=== PATIENT | male | born 1945 | race Caucasian/White ===

== ENCOUNTER 2016-07-02 11:36 | Emergency (ER) | payer MEDICARE ==
[~2016-07-02] VITALS: Ht 167.6 cm; Wt 78.0 kg
[~2016-07-02 11:36] MED LIST: APIX5TAB PO; ATOR20TA42 PO; CARD4TAB2 PO; CART240C4 PO; CEPH500C3 PO; CHOL50006 PO; CLON.1 PO; COEN400C PO; HYDR12.56 PO; LOSA100T PO; METO50TA PO; OCUVTAB4 PO; OMEP20CA5 PO; POTA1TAB4 PO; SYNT137T PO; TAB-TAB PO
[2016-07-02 11:54] VITALS: BP 102/55; PULSE 82; RESP 18; TEMP 99.8; O2SAT 94
[2016-07-02] MEDS ORDERED: CLON.1 PO (12:05)
[2016-07-02] MEDS ORDERED: LIPI20TA PO (12:05)
[2016-07-02] MEDS ORDERED: LEVO25TA39 PO (12:05)
[2016-07-02] MEDS ORDERED: LEVO50TA53 PO ×2 (12:05)
[2016-07-02] MEDS ORDERED: HYDR12.56 PO (12:05)
[2016-07-02] MEDS ORDERED: POTA1TAB4 PO (12:05)
[2016-07-02] MEDS ORDERED: CARD4TAB2 PO (12:05)
[2016-07-02] MEDS ORDERED: PRIL20CA9 PO (12:05)
[2016-07-02] MEDS ORDERED: LOSA25TA PO (12:08)
[2016-07-02] MEDS ORDERED: CHOL1CHW5 CHEW (12:09)
[2016-07-02] MEDS ORDERED: METO50TA PO (12:09)
[2016-07-02] MEDS ORDERED: CART240C PO (12:09)
[2016-07-02] MEDS ORDERED: APIX5TAB PO (12:09)
[2016-07-02] MEDS ORDERED: SODIUM CHLORIDE 0.9% FLUSH 5 ML FLUSH IVF PRN (12:15)
--- NOTE | 2016-07-02 12:45 | PD ---
HPI Chief Complaint: Cold / Flu Symptoms Time Seen by Provider: 12:08 Travel History International Travel<30 days: No Contact w/Intl Traveler<30days: No Traveled to known affect area: No History of Present Illness HPI Patient is a 71-year-old male who presents to emergency room with complaints of cough congestion, fevers and chills for the past 2 days. Patient reports that his was sick with similar symptoms - reports that he is not feeling any better but continues to feel sick. Reports that his symptoms initially began with sore throat, reports that he now has increased cough/congestion. Reports that he also had diarrhea a few days ago - reports no diarrhea today. Denies abdominal pain. Denies n/v. Denies chest pain/sob. No recent travels/trips. 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.) Endocrine: Yes Gastrointestinal Disorders: Yes GERD: Yes Glaucoma: No Genitourinary: No Hepatitis: No Hiatal Hernia: Yes Hypertension: Yes Immune Disorder: No Implanted Vascular Access Dvce: Yes Medical other: No Musculoskeletal: Yes Neurologic: No Psychiatric: No Reproductive: No Respiratory: Yes (ASTHMA) Integumentary: No Immunizations Current: No Thyroid Disease: Yes (HYPOTHYROID) Influenza Vaccination: No Past Surgical History Abdominal Surgery: No AICD: No Body Medical Devices: LOWER BACK Cardiac Surgery: Yes (ABLASION 016) Ear Surgery: No Endocrine Surgery: No Eye Surgery: No Genitourinary Surgery: No Joint Replacement: No Neurologic Surgery: No Oral Surgery: Yes (TONSILLECTOMY) Pacemaker: No Thoracic Surgery: No Tonsillectomy: Yes Other Surgery: Yes (RIGHT KNEE; TORN ACL) Social History Alcohol Use: Yes (DAILY) Tobacco Use: No Substance Use: No Allergies-Medications (Allergen,Severity, Reaction): Coded Allergies: Sulfa (Verified Adverse Reaction, Severe, subconjuntival bleed, 07/02/16) Reported Meds & Prescriptions Reported Meds & Active Scripts Active Reported Cartia Xt (Diltiazem ER 24 HR) 240 Mg Caper 240 Mg PO DAILY Vitamin D3 (Cholecalciferol) 2,000 Unit Chew 2,000 Units CHEW DAILY Metoprolol Tartrate 50 Mg Tab 50 Mg PO BID Eliquis (Apixaban) 5 Mg Tab 5 Mg PO BID Losartan (Losartan Potassium) 25 Mg Tab 10 Mg PO DAILY Levoxyl (Levothyroxine Sodium) 50 Mcg Tab 50 Mcg PO RODRÍGUEZ,TH Levoxyl (Levothyroxine Sodium) 50 Mcg Tab 50 Mcg PO DAILY Levoxyl (Levothyroxine Sodium) 25 Mcg Tab 37.5 Mcg PO M,T,W,F,SA Prilosec (Omeprazole) 20 Mg Cap 20 Mg PO DAILY Lipitor (Atorvastatin Calcium) 20 Mg Tab 20 Mg PO HS K-Tab (Potassium Chloride) 20 Meq Tab 40 Meq PO DAILY Hydrochlorothiazide 12.5 Mg Tab 12.5 Mg PO DAILY Cardura (Doxazosin Mesylate) 4 Mg Tab 4 Mg PO DAILY Catapres (Clonidine) 0.1 Mg Tab 0.1 Mg PO TID Review of Systems General / Constitutional: Positive: Fever, Chills Eyes: No: Visual changes HENT: No: Headaches Cardiovascular: No: Chest Pain or Discomfort Respiratory: Positive: Cough, No: Shortness of Breath Gastrointestinal: Positive: Diarrhea, No: Abdominal Pain Genitourinary: No: Dysuria Musculoskeletal: No: Pain Skin: No Rash Neurologic: No: Weakness Psychiatric: No: Depression Endocrine: No: Polydipsia Hematologic/Lymphatic: No: Easy Bruising Physical Exam Narrative GENERAL: nad, nontoxic SKIN: Warm and dry. HEAD: Atraumatic. Normocephalic. EYES:. No injection or drainage. ENT: No nasal bleeding or discharge. Mucous membranes pink and moist. NECK: Trachea midline. No JVD. CARDIOVASCULAR: Regular rate and rhythm. No murmur appreciated. RESPIRATORY: No accessory muscle use. Clear to auscultation. Breath sounds equal bilaterally. GASTROINTESTINAL: Abdomen soft, non-tender, nondistended. Hepatic and splenic margins not palpable. MUSCULOSKELETAL: No obvious deformities. No clubbing. No cyanosis. No edema. NEUROLOGICAL: Awake and alert. No obvious cranial nerve deficits. Motor grossly within normal limits. Normal speech. PSYCHIATRIC: Appropriate mood and affect; insight and judgment normal. Data Data Last Documented VS Vital Signs Date Time Temp Pulse Resp B/P Pulse Ox O2 Delivery O2 Flow Rate FiO2 07/02/16 13:10 78 18 106/62 95 Nasal Cannula 2 07/02/16 11:54 99.8 Orders Complete Blood Count With Diff (07/02/16 12:12) Comprehensive Metabolic Panel (07/02/16 12:12) Group A Rapid Strep Screen (07/02/16 12:12) Influenzae A/B Antigen (07/02/16 12:12) Chest, Pa & Lat (07/02/16 12:12) Iv Access Insert/Monitor (07/02/16 12:12) Oximetry (07/02/16 12:12) Sodium Chloride 0.9% Flush (Ns Flush) (07/02/16 12:15) Strep Culture (Group A) (07/02/16 12:15) Sodium Chlor 0.9% 1000 Ml Inj (Ns 1000 M (07/02/16 13:00) Labs Laboratory Tests Test 07/02/16 12:40 White Blood Count 11.0 TH/MM3 Red Blood Count 5.05 MIL/MM3 Hemoglobin 15.6 GM/DL Hematocrit 46.4 % Mean Corpuscular Volume 91.7 FL Mean Corpuscular Hemoglobin 30.8 PG Mean Corpuscular Hemoglobin 33.5 % Concent Red Cell Distribution Width 12.6 % Platelet Count 181 TH/MM3 Mean Platelet Volume 8.3 FL Neutrophils (%) (Auto) 79.9 % Lymphocytes (%) (Auto) 6.5 % Monocytes (%) (Auto) 9.7 % Eosinophils (%) (Auto) 0.0 % Basophils (%) (Auto) 3.9 % Neutrophils # (Auto) 8.8 TH/MM3 Lymphocytes # (Auto) 0.7 TH/MM3 Monocytes # (Auto) 1.1 TH/MM3 Eosinophils # (Auto) 0.0 TH/MM3 Basophils # (Auto) 0.4 TH/MM3 CBC Comment DIFF FINAL Differential Comment Sodium Level 135 MEQ/L Potassium Level 3.7 MEQ/L Chloride Level 98 MEQ/L Carbon Dioxide Level 28.6 MEQ/L Anion Gap 8 MEQ/L Blood Urea Nitrogen 11 MG/DL Creatinine 1.10 MG/DL Estimat Glomerular Filtration 66 ML/MIN Rate Random Glucose 121 MG/DL Calcium Level 8.3 MG/DL Total Bilirubin 0.6 MG/DL Aspartate Amino Transf 23 U/L (AST/SGOT) Alanine Aminotransferase 32 U/L (ALT/SGPT) Alkaline Phosphatase 91 U/L Total Protein 7.3 GM/DL Albumin 3.6 GM/DL MDM Medical Decision Making Medical Screen Exam Complete: Yes Emergency Medical Condition: Yes Interpretation(s) Vital Signs Date Time Temp Pulse Resp B/P Pulse Ox O2 Delivery O2 Flow Rate FiO2 07/02/16 11:54 99.8 82 18 102/55 94 Differential Diagnosis Pneumonia, influenza, viral syndrome, gastroenteritis, strep pharyngitis Narrative Course Patient is a 71-year-old male who presents to emergency room with complaints of not feeling well. Patient reports that his symptoms initially began with sore throat, reports that he progressed to having diarrhea with fevers and chills and myalgias. Reports the cough has been nonproductive in nature. Patient's was sick with similar symptoms previously onset of symptoms. X-ray of the chest ordered for evaluation of possible pneumonia. . Patient for possible flu. CBC and BMP ordered to evaluate for possible electrolyte abnormalities CBC: WBC 11.0 Hemoglobin 15.6 Hematocrit 46.4 Platelets 181 BMP Sodium 135 Chloride 98 BUN 11 Creatinine 1.10 Glucose 121 Potassium 3.7 Carbon dioxide 28.6 Influenza: Positive for influenza A X-ray of chest: Under aerated lungs otherwise negative Patient overall nontoxic in the emergency room, vital signs stable. I reviewed all labs and all studies with patient detail. Given that symptoms began 2 days ago, will start him on Tamiflu. Signs and symptoms of when to return to the emergency room was reviewed with patient in detail. Patient will follow-up with primary care doctor and return to ER as needed Diagnosis Primary Impression: Influenza A Patient Instructions: General Instructions Additional Instructions: Please make sure you drink plenty of fluids Return to ER as needed Please call your primary care doctor and follow-up in 2-3 days Return to ER if symptoms progress or worsen Med/Other Pt SpecificInfo: Prescription(s) given Scripts Oseltamivir (Tamiflu)75 Mg Cap75 Mg PO BID 5 Days Ref 0 Prov:Keli Acosta DO 07/02/16 Disposition: 01 DISCHARGE HOME Condition: Stable Keli Acosta DO Jul 02, 2016 12:45
[2016-07-02 12:47] VITALS: RESP 18; O2SAT 92
[2016-07-02 12:52] LABS: AUTOMATED NEUTROPHIL # 8.8 TH/MM3 (1.8-7.7); BASOPHIL # 0.4 TH/MM3 (0-0.2); BASOPHIL % 3.9 % (0.0-2.0); HEMATOCRIT 46.4 % (39.0-51.0); LYMPH % 6.5 % (9.0-44.0); LYMPHOCYTE # 0.7 TH/MM3 (1.0-4.8); MEAN CELL VOLUME 91.7 FL (80.0-100.0); MEAN CORPUSCULAR HEMOGLOBIN 30.8 PG (27.0-34.0); MEAN CORPUSCULAR HGB CONC 33.5 % (32.0-36.0); MONO % 9.7 % (0.0-8.0); NEUT % 79.9 % (16.0-70.0); PLATELET COUNT 181 TH/MM3 (150-450); RED BLOOD COUNT 5.05 MIL/MM3 (4.50-5.90); RED CELL DISTRIBUTION WIDTH 12.6 % (11.6-17.2)
[2016-07-02 12:53] LABS: HEMO FLAGS DIFF FINAL
[2016-07-02 13:00] LABS: CHLORIDE 98 MEQ/L (98-107); POTASSIUM 3.7 MEQ/L (3.5-5.1); SODIUM (NA) 135 MEQ/L (136-145)
[2016-07-02] MEDS ORDERED: SODIUM CHLOR 0.9% 1000 ML INJ 1,000 ML IV ONE (13:00)
[2016-07-02 13:04] LABS: ANION GAP 8 MEQ/L (5-15); BICARBONATE 28.6 MEQ/L (21.0-32.0); BLOOD UREA NITROGEN 11 MG/DL (7-18)
[2016-07-02 13:07] LABS: ALT (GPT) 32 U/L (12-78); AST (GOT) 23 U/L (15-37); GLOMERULAR FILTRATION RATE 66 ML/MIN (>89)
[2016-07-02 13:08] LABS: TOTAL BILIRUBIN ADULT 0.6 MG/DL (0.2-1.0)
[2016-07-02 13:10] VITALS: BP 106/62; PULSE 78; RESP 18; O2SAT 95
[2016-07-02 13:10] LABS: ALKALINE PHOSPHATASE 91 U/L (45-117)
--- NOTE | 2016-07-02 13:46 | RADHPO ---
EXAM DATE/TIME: 07/02/2016 12:24 [facility] COMPARISON: CHEST PA & LAT, June 22, 2010, 14:23. INDICATIONS : Flu like symptoms. MEDICAL HISTORY : Hypercholesterolemia. Diabetes mellitus type II. Hypothyroidism. Hypertension. Hiatial hernia. GE RD. SURGICAL HISTORY : Tonsillectomy. Cardiac abasion. Lumbar. Knee. ENCOUNTER: Initial ACUITY: 3 days PAIN SCORE: 3/10 LOCATION: chest FINDINGS: The lungs are under-aerated but clear. The heart and pulmonary vascularity are normal. The portions of the bony skeleton visualized reveal only degenerative changes. CONCLUSION: Under-aerated. Otherwise, negative. Leandro Prasad MD FACR on July 02, 2016 at 12:52 Board Certified Radiologist. This report was verified electronically.
[2016-07-02] MEDS ORDERED: OSEL75 PO (14:12)
[2016-07-02 14:20] VITALS: BP 124/63; PULSE 75; RESP 18; O2SAT 95
== END 2016-07-02 14:39 | disposition home or self-care (01) ==
LOC: PHED 11:36
DX: J09.X2 Influenza due to identified novel influenza A virus with other respiratory manifestations (principal); J45.909 Unspecified asthma, uncomplicated; E78.00 Pure hypercholesterolemia, unspecified; E11.9 Type 2 diabetes mellitus without complications; K21.9 Gastro-esophageal reflux disease without esophagitis; I10 Essential (primary) hypertension; E07.9 Disorder of thyroid, unspecified
CPT/HCPCS: 71020; 80053; 85025; 87081; 87804; 87880; 96360; 99283; J7030

== ENCOUNTER → 2016-11-29 | Outpatient (CLI) | payer MEDICARE ==
[~2016-11-29] MED LIST changes: -ATOR20TA42 PO; +CART240C PO; -CART240C4 PO; -CEPH500C3 PO; +CHOL1CHW5 CHEW; -CHOL50006 PO; -COEN400C PO; +LEVO25TA39 PO; +LEVO50TA53 PO; +LIPI20TA PO; -LOSA100T PO; +LOSA25TA PO; -OCUVTAB4 PO; -OMEP20CA5 PO; +OSEL75 PO; +PRIL20CA9 PO; -SYNT137T PO; -TAB-TAB PO
[2016-11-29 10:36] LABS: AUTOMATED NEUTROPHIL # 2.7 TH/MM3 (1.8-7.7); BASOPHIL % 0.8 % (0.0-2.0); EOSINOPHIL # 0.2 TH/MM3 (0-0.4); EOSINOPHIL % 4.9 % (0.0-4.0); HEMATOCRIT 45.9 % (39.0-51.0); HEMO FLAGS DIFF FINAL; LYMPHOCYTE # 1.2 TH/MM3 (1.0-4.8); MEAN CELL VOLUME 91.6 FL (80.0-100.0); MEAN CORPUSCULAR HEMOGLOBIN 31.4 PG (27.0-34.0); MEAN CORPUSCULAR HGB CONC 34.3 % (32.0-36.0); NEUT % 54.3 % (16.0-70.0); PLATELET COUNT 186 TH/MM3 (150-450); RED BLOOD COUNT 5.02 MIL/MM3 (4.50-5.90); RED CELL DISTRIBUTION WIDTH 13.5 % (11.6-17.2); WHITE BLOOD COUNT 4.9 TH/MM3 (4.0-11.0)
[2016-11-29 10:59] LABS: ALT (GPT) 39 U/L (12-78)
[2016-11-29 11:09] LABS: ALKALINE PHOSPHATASE 82 U/L (45-117); HDL CHOLESTEROL 51.5 MG/DL (40.0-60.0); LDL CHOLESTEROL 78 MG/DL (0-99); TOTAL BILIRUBIN ADULT 0.6 MG/DL (0.2-1.0)
[2016-11-29 11:11] LABS: ANION GAP 6 MEQ/L (5-15); AST (GOT) 34 U/L (15-37); BICARBONATE 27.5 MEQ/L (21.0-32.0); BLOOD UREA NITROGEN 14 MG/DL (7-18); CHLORIDE 104 MEQ/L (98-107); GLOMERULAR FILTRATION RATE 89 ML/MIN (>89); GLUCOSE,FASTING 118 MG/DL (74-99); SODIUM (NA) 137 MEQ/L (136-145)
[2016-11-29 17:30] LABS: HEMOGLOBIN A1b 0.8 %; HEMOGLOBIN Ao 84.7 %; HEMOGLOBIN LA1C 2.2 %; HEMOGLOBIN P3 3.8 %
== END ==
LOC: CLAB 10:09
PROVIDERS: ATTEND Internal Medicine Nephrology
DX: I10 Essential (primary) hypertension (principal); E11.9 Type 2 diabetes mellitus without complications; I48.91 Unspecified atrial fibrillation; E78.5 Hyperlipidemia, unspecified
CPT/HCPCS: 36415; 80053; 80061; 82043; 83036; 84443; 85025

== ENCOUNTER 2017-03-26 09:38 | Emergency (ER) | payer MEDICARE ==
[~2017-03-26] VITALS: Ht 167.6 cm; Wt 79.7 kg
[2017-03-26 09:59] VITALS: BP 106/64; PULSE 70; RESP 16; TEMP 98.9; O2SAT 95
[2017-03-26] MEDS ORDERED: RESP: ALBUTEROL 2.5 MG/IPRATROPIUM 0.5 MG NEB (SCH) NEB ONE (10:15)
--- NOTE | 2017-03-26 10:17 | PD ---
HPI Chief Complaint: Cold / Flu Symptoms Time Seen by Provider: 10:03 Travel History International Travel<30 days: No Contact w/Intl Traveler<30days: No Traveled to known affect area: No History of Present Illness HPI The patient is a 72-year-old male who presents to the emergency department for cough and cold symptoms of 2-3 days duration. The patient is approximately 3 days of cough and cold symptoms with congestion, productive cough producing white sputum, mild nausea, few episodes of diarrhea, and some mild generalized body aches. The patient had similar symptoms in June 2016 was diagnosed with influenza. The patient did receive his influenza vaccination this year and states his symptoms have been ongoing for greater than 48 hours. He denies any history of bronchitis or pneumonia, however, does hear "wheezing ", when he breathes. He denies any outright shortness of breath. He does note some generalized fatigue and chills, denies any measurable fever at home. Patient's symptoms are moderate without any alleviating or exacerbating factors. The patient denies any history of congestive heart failure. 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.) Endocrine: Yes Gastrointestinal Disorders: Yes GERD: Yes Glaucoma: No Genitourinary: No Hepatitis: No Hiatal Hernia: Yes Hypertension: Yes Immune Disorder: No Implanted Vascular Access Dvce: Yes Musculoskeletal: Yes Neurologic: No Psychiatric: No Reproductive: No Respiratory: Yes (ASTHMA) Integumentary: No Immunizations Current: No Thyroid Disease: Yes (HYPOTHYROID) Past Surgical History Abdominal Surgery: No AICD: No Body Medical Devices: LOWER BACK Cardiac Surgery: Yes (ABLASION 0/16) Ear Surgery: No Endocrine Surgery: No Eye Surgery: No Genitourinary Surgery: No Joint Replacement: No Neurologic Surgery: No Oral Surgery: Yes (TONSILLECTOMY) Pacemaker: No Thoracic Surgery: No Tonsillectomy: Yes Other Surgery: Yes (RIGHT KNEE; TORN ACL) Social History Alcohol Use: Yes (DAILY) Tobacco Use: No Substance Use: No Allergies-Medications (Allergen,Severity, Reaction): Coded Allergies: Sulfa (Sulfonamide Antibiotics) (Unverified Adverse Reaction, Severe, subconjuntival bleed, 03/26/17) Reported Meds & Prescriptions Reported Meds & Active Scripts Active Reported Omeprazole 20 Mg Tab 20 Mg PO DAILY Cartia Xt (Diltiazem ER 24 HR) 120 Mg Caper 240 Mg PO DAILY Vitamin D3 (Cholecalciferol) 2,000 Unit Cap 2,000 Units PO DAILY Metoprolol Tartrate 50 Mg Tab 50 Mg PO BID Eliquis (Apixaban) 5 Mg Tab 5 Mg PO BID Losartan (Losartan Potassium) 25 Mg Tab 10 Mg PO DAILY Levoxyl (Levothyroxine Sodium) 50 Mcg Tab 50 Mcg PO RODRÍGUEZ,TH Levoxyl (Levothyroxine Sodium) 25 Mcg Tab 37.5 Mcg PO M,T,W,F,SA Lipitor (Atorvastatin Calcium) 20 Mg Tab 20 Mg PO HS K-Tab (Potassium Chloride) 20 Meq Tab 40 Meq PO DAILY Hydrochlorothiazide 12.5 Mg Tab 12.5 Mg PO DAILY Cardura (Doxazosin Mesylate) 4 Mg Tab 4 Mg PO DAILY Catapres (Clonidine) 0.1 Mg Tab 0.1 Mg PO TID Review of Systems Except as stated in HPI: all other systems reviewed are Neg General / Constitutional: Positive: Chills, No: Fever HENT: Positive: Congestion, No: Sore Throat Cardiovascular: No: Chest Pain or Discomfort Respiratory: Positive: Cough, Wheezing, No: Shortness of Breath Gastrointestinal: Positive: Nausea, Diarrhea, No: Vomiting, Abdominal Pain Genitourinary: No: Dysuria Musculoskeletal: Positive: Myalgias, Weakness Physical Exam Narrative GENERAL: Awake, alert, pleasant 72-year-old male who appears his stated age and is in no acute respiratory distress. SKIN: Focused skin assessment warm/dry. HEAD: Atraumatic. Normocephalic. EYES: Pupils equal and round. No scleral icterus. No injection or drainage. ENT: No nasal bleeding or discharge. Mucous membranes pink and moist. Cobblestoning of posterior pharynx but no exudate. NECK: Trachea midline. No JVD. CARDIOVASCULAR: Regular rate and rhythm. No murmur appreciated. RESPIRATORY: No accessory muscle use. Few scattered wheezes and rhonchi in the bases. GASTROINTESTINAL: Abdomen soft, non-tender, nondistended. MUSCULOSKELETAL: No obvious deformities. No clubbing. No cyanosis. No edema. NEUROLOGICAL: Awake and alert. No obvious cranial nerve deficits. Motor grossly within normal limits. Normal speech. PSYCHIATRIC: Appropriate mood and affect; insight and judgment normal. Data Data Last Documented VS Vital Signs Date Time Temp Pulse Resp B/P (MAP) Pulse Ox O2 Delivery O2 Flow Rate FiO2 03/26/17 10:17 Room Air 03/26/17 09:59 98.9 70 16 106/64 (78) 95 Orders Orders Chest, Single Ap (03/26/17 ) Albuterol-Ipratropium Neb (Duoneb Neb) (03/26/17 10:15) Prednisone (Deltasone) (03/26/17 11:30) Ed Discharge Order (03/26/17 11:24) [facility] Medical Decision Making Medical Screen Exam Complete: Yes Emergency Medical Condition: Yes Medical Record Reviewed: Yes Interpretation(s) Chest x-ray reveals no acute disease. Differential Diagnosis Differential diagnosis includes bronchitis, pneumonia, congestive heart failure , pleural effusion, pulmonary edema, volume overload, viral syndrome, influenza. Narrative Course A chest x-ray was obtained and the patient was administered one DuoNeb. The patient's symptoms been ongoing for 48-72 hours, the patient is outside the window for Tamiflu treatment, therefore, influenza screen was not sent to lab. Chest x-rays unremarkable. The patient was reevaluated at 11:21 AM. The patient's symptoms have improved. The patient will be treated for bronchitis with prednisone, Zithromax, and an albuterol inhaler. He will be provided a copy of his x-ray results and is advised to follow-up with his primary physician. Diagnosis Primary Impression: Bronchitis Patient Instructions: General Instructions Additional Instructions: Please provide the patient a copy of his x-ray results at discharge. Follow-up with your primary physician. Medications as directed. Return if symptoms worsen or progress. Med/Other Pt SpecificInfo: Prescription(s) given Scripts Albuterol 18 GM Inh (Ventolin Hfa 18 GM Inh) 90 Mcg/Act Aer 2 PUFF INH Q4H Y for SHORTNESS OF BREATH, #1 INHALER 0 Refills Prov: Teo Montano MD 03/26/17 Azithromycin (Zithromax Z-Rommel) 250 Mg Dspk 250 MG PO DIRECTED for Infection, #1 DSPK 0 Refills 500 MG (2 tabs) day 1, then 1 tab days 2-5. Prov: Teo Montano MD 03/26/17 Prednisone (Deltasone) 20 Mg Tab 40 MG PO DAILY for 4 Days, #8 TAB 0 Refills Prov: Teo Montano MD 03/26/17 Disposition: 01 DISCHARGE HOME Condition: Stable Teo Montano MD Mar 26, 2017 10:17
[2017-03-26] MEDS ORDERED: VITA2000 PO (10:22)
[2017-03-26] MEDS ORDERED: OMEP20TA PO (10:22)
[2017-03-26] MEDS ORDERED: CART120C PO (10:22)
--- NOTE | 2017-03-26 11:21 | RADRPT ---
EXAM DATE/TIME: 03/26/2017 10:46 [facility] COMPARISON: No previous studies available for comparison. INDICATIONS : Cough, congestion, short of breath MEDICAL HISTORY : None. SURGICAL HISTORY : None. ENCOUNTER: Initial ACUITY: 3 days PAIN SCORE: 0/10 LOCATION: Bilateral chest FINDINGS: A single view of the chest demonstrates the lungs to be symmetrically aerated without evidence of mas s, infiltrate or effusion. The cardiomediastinal contours are unremarkable. Osseous structures are intact. CONCLUSION: No acute disease. Luisito Eastman MD on March 26, 2017 at 11:19 Board Certified Radiologist. This report was verified electronically.
[2017-03-26] MEDS ORDERED: ZITHTAB PO (11:25)
[2017-03-26] MEDS ORDERED: PRED-503 PO (11:25)
[2017-03-26] MEDS ORDERED: VENTAER INH ×2 (11:25→11:35)
[2017-03-26] MEDS ORDERED: predniSONE 20 MG TAB PO ONE (11:30)
== END 2017-03-26 11:36 | disposition home or self-care (01) ==
LOC: PHEFT 09:38
DX: J40 Bronchitis, not specified as acute or chronic (principal); J45.909 Unspecified asthma, uncomplicated; I10 Essential (primary) hypertension; I48.91 Unspecified atrial fibrillation; E78.00 Pure hypercholesterolemia, unspecified; E11.9 Type 2 diabetes mellitus without complications; K21.9 Gastro-esophageal reflux disease without esophagitis; E03.9 Hypothyroidism, unspecified
CPT/HCPCS: 71010; 94664; 99284; J7512

== ENCOUNTER → 2017-06-08 | Outpatient (CLI) | payer MEDICARE ==
[~2017-06-08] MED LIST changes: +CART120C PO; -CART240C PO; -CHOL1CHW5 CHEW; +OMEP20TA93 PO; -OSEL75 PO; +PRED-503 PO; -PRIL20CA9 PO; +VENTAER INH; +VITA2000 PO; +ZITHTAB PO
[2017-06-08 10:54] LABS: AUTOMATED NEUTROPHIL # 2.4 TH/MM3 (1.8-7.7); BASOPHIL % 0.7 % (0.0-2.0); EOSINOPHIL # 0.2 TH/MM3 (0-0.4); EOSINOPHIL % 4.5 % (0.0-4.0); HEMATOCRIT 47.1 % (39.0-51.0); HEMOGLOBIN 16.3 GM/DL (13.0-17.0); LYMPH % 26.7 % (9.0-44.0); LYMPHOCYTE # 1.2 TH/MM3 (1.0-4.8); MEAN CELL VOLUME 93.6 FL (80.0-100.0); MEAN CORPUSCULAR HEMOGLOBIN 32.5 PG (27.0-34.0); MEAN CORPUSCULAR HGB CONC 34.7 % (32.0-36.0); MEAN PLATELET VOLUME 8.4 FL (7.0-11.0); MONO % 15.9 % (0.0-8.0); MONOCYTE # 0.7 TH/MM3 (0-0.9); NEUT % 52.2 % (16.0-70.0); PLATELET COUNT 231 TH/MM3 (150-450); RED BLOOD COUNT 5.03 MIL/MM3 (4.50-5.90); RED CELL DISTRIBUTION WIDTH 13.5 % (11.6-17.2); WHITE BLOOD COUNT 4.6 TH/MM3 (4.0-11.0)
[2017-06-08 11:27] LABS: ALBUMIN 3.9 GM/DL (3.4-5.0); AST (GOT) 32 U/L (15-37); BICARBONATE 28.2 MEQ/L (21.0-32.0); BLOOD UREA NITROGEN 13 MG/DL (7-18); CALCIUM 9.4 MG/DL (8.5-10.1); CHLORIDE 98 MEQ/L (98-107); CREATININE 1.01 MG/DL (0.60-1.30); GLOMERULAR FILTRATION RATE 73 ML/MIN (>89); GLUCOSE,FASTING 126 MG/DL (74-99); SODIUM (NA) 136 MEQ/L (136-145)
[2017-06-08 11:28] LABS: ALT (GPT) 47 U/L (12-78); CHOLESTEROL 146 MG/DL (120-200); TRIGLYCERIDES 110 MG/DL (42-150)
[2017-06-08 11:37] LABS: ALKALINE PHOSPHATASE 113 U/L (45-117); CHOLESTEROL/ HDL RATIO 2.97 RATIO; LDL CHOLESTEROL 75 MG/DL (0-99); TOTAL BILIRUBIN ADULT 0.5 MG/DL (0.2-1.0); TOTAL PROTEIN 7.8 GM/DL (6.4-8.2)
[2017-06-08 14:30] LABS: HEMOGLOBIN A1C 6.1 % (4.3-6.0)
== END ==
LOC: CLAB 09:50
PROVIDERS: ATTEND Internal Medicine Nephrology
DX: E11.9 Type 2 diabetes mellitus without complications (principal); R97.20 Elevated prostate specific antigen [PSA]; I10 Essential (primary) hypertension; E03.9 Hypothyroidism, unspecified; I48.91 Unspecified atrial fibrillation
CPT/HCPCS: 36415; 80053; 80061; 83036; 84153; 84443; 85025

== ENCOUNTER → 2017-10-14 | Outpatient (CLI) | DX: I25.119 Atherosclerotic heart disease of native coronary artery with unspecified angina pectoris (principal); I48.0 Paroxysmal atrial fibrillation; M25.50 Pain in unspecified joint; I11.0 Hypertensive heart disease with heart failure ==

== ENCOUNTER 2018-07-25 11:16 | Inpatient (IN) ==
--- NOTE | 2018-07-25 11:43 | ED ---
HPI General Chief Complaint: Chest Pain Stated Complaint: Medical Time Seen by Provider: 07/25/18 11:27 Source: patient, family and old records reviewed Mode of arrival: ambulatory Limitations: no limitations History of Present Illness HPI narrative: Patient is a 73-year-old male presenting to the emergency department for evaluation of increasing fatigue with any exertion. 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 Muñiz and sent to the emergency department to be admitted for a cardiac ablation. Patient reports a history of the same several years ago. Patient denies any chest pain, abdominal pain, nausea, vomiting peripheral edema, shortness of breath, orthopnea. He states he does get lightheaded at times when he walks. Past medical history significant for prostate cancer, currently on radiation therapy, angina, hyperlipidemia, hypertension, type 2 diabetes, asthma, coronary artery disease, paroxysmal A. fib, hypothyroidism. Related Data Home Medications Medication Instructions Recorded Confirmed apixaban [Eliquis] 5 mg PO BID 07/25/18 07/25/18 atorvastatin [Lipitor] 20 mg PO QPM 07/25/18 07/25/18 clonidine HCl 0.1 mg PO TID 07/25/18 07/25/18 diltiazem HCl [Cartia XT] 240 mg PO DAILY 07/25/18 07/25/18 doxazosin [Cardura] 4 mg PO DAILY 07/25/18 07/25/18 hydrochlorothiazide 12.5 mg PO DAILY 07/25/18 07/25/18 levothyroxine [Levoxyl] 50 mcg PO DAILY 07/25/18 07/25/18 losartan 100 mg PO DAILY 07/25/18 07/25/18 metoprolol tartrate 50 mg PO BID 07/25/18 07/25/18 Allergies Allergy/AdvReac Type Severity Reaction Status Date / Time Sulfa (Sulfonamide AdvReac Severe subconjuntival Unverified 03/26/17 10:01 Antibiotics) bleed Review of Systems ROS: all other systems reviewed are negative [facility] Medical History Medical History Angina pectoris (Acute) Asthma (Acute) Atrial fibrillation (Acute) CAD (coronary artery disease) (Acute) Chronic back pain (Acute) Diabetes (Acute) Heart palpitations (Acute) Hernia (Acute) Hyperlipidemia (Acute) Hypertension (Acute) Hypothyroid (Acute) Prostate cancer (Acute) Surgical History Surgical History H/O knee surgery (Acute) Previous back surgery (Acute) Social History Social History Substance History: No History of Abuse Second Hand Smoke Exposure: No Smoking Status: Never smoker How Often Do You Have a Drink Containing Alcohol: 4 or more times a week Recent Travel in [facility] within the Last 8 Weeks: No Recent Out of Country Travel within the Last 8 Weeks: No Immunization History Tetanus Immunization: >5 Years Exam Narrative Exam Narrative: GENERAL: Well-developed, well-nourished, alert elderly male. Presenting in no acute distress. SKIN: Focused skin assessment warm/dry. HEAD: Atraumatic. Normocephalic. EYES: Pupils equal and round. No scleral icterus. No injection or drainage. ENT: No nasal bleeding or discharge. Mucous membranes pink and moist. NECK: Trachea midline. No JVD. CARDIOVASCULAR: Irregularly irregular, bradycardic. No murmur appreciated. RESPIRATORY: No accessory muscle use. Clear to auscultation. Breath sounds equal bilaterally. GASTROINTESTINAL: Abdomen soft, non-tender, nondistended. Hepatic and splenic margins not palpable. MUSCULOSKELETAL: No obvious deformities. No clubbing. No cyanosis. No edema. NEUROLOGICAL: Awake and alert. No obvious cranial nerve deficits. Motor grossly within normal limits. Normal speech. PSYCHIATRIC: Appropriate mood and affect; insight and judgment normal. Course Initial Documented Vital Signs Temperature 97.4 F L 07/25/18 11:19 Pulse Rate 63 07/25/18 11:19 Respiratory Rate 18 07/25/18 11:19 Blood Pressure 129/58 L 07/25/18 11:19 Pulse Oximetry 98 07/25/18 11:19 Last Documented Vital Signs Temperature 97.4 F L 07/25/18 11:19 Pulse Rate 57 L 07/25/18 11:47 Respiratory Rate 16 07/25/18 11:47 Blood Pressure 140/72 07/25/18 11:47 Pulse Oximetry 96 07/25/18 11:47 Medical Decision Making ABA Attestation ABA supervised visit: Yes Attestation: I, Dr. Poole, have reviewed the advance practice practitioner's documentation and am in agreement, met with the patient face to face, made the diagnosis, and the medical decision making was done by me. See her note for further details. This is a 73-year-old male with symptomatic arrhythmias. Patient goes from tachyarrhythmia to bradycardia arrhythmia. He was sent in by his product management specialist Dr. Muñiz for admission for EP studies by Dr. Acosta. Patient is overall very well-appearing and is asymptomatic while resting in the stretcher. No significant physical exam findings other than irregular heart rhythm. MDM Narrative Medical decision making narrative: Patient is a 73-year-old male presenting on the advice of his product management specialist Dr. Muñiz for reported cardiac ablation. Initial EKG shows atrial flutter with slow ventricular response with a rate of 58. Labs and imaging ordered and pending. Patient is chest pain-free. Patient 's vital signs are stable. IV access was established patient was placed on radiation monitor and continuous pulse oximetry. Patient's is at bedside.. CBC with no acute findings, chemistry with a sodium of 130. Cardiac enzymes are negative. BNP is mildly elevated at 197. Discussed with Dr. Adrian Salmeron who recommended to hold all beta-blockers, continue Eliquis and consult Dr. Acosta for EP lab tomorrow. Oscar paged for admit. Discussed with Dr. Larios who accepted admit. Discuss Dr. Be request to hold BB, continue eliquis and to consult Dr. Acosta. Discussed plan of care and clinical findings with patient and . Pt verbalized understanding and agreement with plan of care, questions answered. Medical Screen Exam Complete: Yes Emergency Medical Condition: Yes Differential Diagnosis Differential Diagnosis: Symptomatic bradycardia versus arrhythmia versus metabolic abnormality versus ACS versus other Medical Records Medical records reviewed: Yes I reviewed the patient's medical records. Lab Data Lab results reviewed: Yes I reviewed the patient's lab results. Result diagrams: 07/25/18 11:45 07/25/18 11:45 Lab Results 07/25/18 07/25/18 07/25/18 Range/Units 11:45 11:45 11:45 WBC 5.7 (4.0-11.0) th/mm3 RBC 4.95 (4.50-5.90) mil/mm3 Hgb 16.1 (13.0-17.0) gm/dL Hct 46.0 (39.0-51.0) % MCV 92.9 (80.0-100.0) fL MCH 32.6 (27.0-34.0) pg MCHC 35.1 (32.0-36.0) % RDW 13.7 (11.6-17.2) % Plt Count 197 (150-450) th/mm3 MPV 8.3 (7.0-11.0) fL Neut % (Auto) 63.3 (16.0-70.0) % Lymph % (Auto) 19.4 (9.0-44.0) % Starke % (Auto) 14.9 H (0.0-8.0) % Eos % (Auto) 2.0 (0.0-4.0) % Baso % (Auto) 0.4 (0.0-2.0) % Neut # (Auto) 3.6 (1.8-7.7) th/mm3 Lymph # (Auto) 1.1 (1.0-4.8) th/mm3 Starke # (Auto) 0.8 (0.0-0.9) th/mm3 Eos # (Auto) 0.1 (0.0-0.4) th/mm3 Baso # (Auto) 0.0 (0.0-0.2) th/mm3 WBC Differential . Differential Comment Auto diff final PT (9.8-11.6) sec INR Ratio APTT (23.4-31.7) sec Sodium 130 L (136-145) meq/L Potassium 4.2 (3.5-5.1) meq/L Chloride 97 L (98-107) meq/L Carbon Dioxide 25.3 (21.0-32.0) meq/L Anion Gap 8 (5-15) meq/L BUN 13 (7-18) mg/dL Creatinine 0.96 (0.60-1.30) mg/dL Estimated GFR 77 L (>89) mL/min Random Glucose 116 H (74-106) mg/dL Calcium 8.9 (8.5-10.1) mg/dL Magnesium (1.5-2.5) mg/dL Total Bilirubin 0.7 (0.2-1.0) mg/dL AST 30 (15-37) U/L ALT 43 (12-78) U/L Alkaline Phosphatase 91 (45-117) U/L Total Creatine Kinase 206 (39-308) U/L CK-MB (CK-2) 5.2 H (0.5-3.6) ng/mL Troponin I Less than 0.02 L (0.02-0.05) ng/mL B-Natriuretic Peptide 197 H (0-100) pg/mL Total Protein 7.2 (6.4-8.2) g/dL Albumin 3.8 (3.4-5.0) g/dL TSH (0.358-3.740) uIU/mL 07/25/18 07/25/18 Range/Units 11:45 11:45 WBC (4.0-11.0) th/mm3 RBC (4.50-5.90) mil/mm3 Hgb (13.0-17.0) gm/dL Hct (39.0-51.0) % MCV (80.0-100.0) fL MCH (27.0-34.0) pg MCHC (32.0-36.0) % RDW (11.6-17.2) % Plt Count (150-450) th/mm3 MPV (7.0-11.0) fL Neut % (Auto) (16.0-70.0) % Lymph % (Auto) (9.0-44.0) % Starke % (Auto) (0.0-8.0) % Eos % (Auto) (0.0-4.0) % Baso % (Auto) (0.0-2.0) % Neut # (Auto) (1.8-7.7) th/mm3 Lymph # (Auto) (1.0-4.8) th/mm3 Starke # (Auto) (0.0-0.9) th/mm3 Eos # (Auto) (0.0-0.4) th/mm3 Baso # (Auto) (0.0-0.2) th/mm3 WBC Differential Differential Comment PT 11.5 (9.8-11.6) sec INR 1.1 Ratio APTT 35.2 H (23.4-31.7) sec Sodium (136-145) meq/L Potassium (3.5-5.1) meq/L Chloride (98-107) meq/L Carbon Dioxide (21.0-32.0) meq/L Anion Gap (5-15) meq/L BUN (7-18) mg/dL Creatinine (0.60-1.30) mg/dL Estimated GFR (>89) mL/min Random Glucose (74-106) mg/dL Calcium (8.5-10.1) mg/dL Magnesium 2.0 (1.5-2.5) mg/dL Total Bilirubin (0.2-1.0) mg/dL AST (15-37) U/L ALT (12-78) U/L Alkaline Phosphatase (45-117) U/L Total Creatine Kinase (39-308) U/L CK-MB (CK-2) (0.5-3.6) ng/mL Troponin I (0.02-0.05) ng/mL B-Natriuretic Peptide (0-100) pg/mL Total Protein (6.4-8.2) g/dL Albumin (3.4-5.0) g/dL TSH 2.840 (0.358-3.740) uIU/mL Imaging Data Radiologist's impression: Chest X-Ray 07/25/18 11:35 CONCLUSION: Tortuous aorta otherwise unremarkable single view chest Discharge Plan Discharge Disposition Patient Disposition: ED Admit(ED Internal Use Only) Discharge Condition Condition: Stable Discharge Order Discharge Orders: ED Use Only Admit Order (Routine); Ordered 07/25/18 Ordered By: Kori Bryant Discharge Details Diagnosis: Arrhythmia, CHF (congestive heart failure), Hyponatremia Physicians Team ED Provider: Dyllan Poole ED Midlevel Provider: Kori Bryant Primary Care Provider: Parish Ponce Rxs /Orders / Referrals /Forms Prescriptions: No Action clonidine HCl 0.1 mg Tablet 0.1 mg PO TID RF: 0 atorvastatin [Lipitor] 20 mg Tablet 20 mg PO QPM RF: 0 diltiazem HCl [Cartia XT] 240 mg Capsule,Extended Release 24hr 240 mg PO DAILY RF: 0 levothyroxine [Levoxyl] 50 mcg Tablet 50 mcg PO DAILY RF: 0 metoprolol tartrate 50 mg Tablet 50 mg PO BID RF: 0 hydrochlorothiazide 12.5 mg Capsule 12.5 mg PO DAILY RF: 0 doxazosin [Cardura] 4 mg Tablet 4 mg PO DAILY RF: 0 losartan 100 mg Tablet 100 mg PO DAILY RF: 0 apixaban [Eliquis] 5 mg Tablet 5 mg PO BID RF: 0 Discharge Instructions Patient Printed Instructions: Chest Pain (ED) Discharge Interventions Interventions: Vital Signs Last Done: 07/25/18 11:27 Status ED Status: Pending Admission
[2018-07-25 11:52] LABS: Baso % (Auto) 0.4 % (0.0-2.0); Eos # (Auto) 0.1 th/mm3 (0.0-0.4); Hemoglobin 16.1 gm/dL (13.0-17.0); Lymph # (Auto) 1.1 th/mm3 (1.0-4.8); Lymph % (Auto) 19.4 % (9.0-44.0); Mean Corpuscular HGB Conc 35.1 % (32.0-36.0); Mean Corpuscular Hemoglobin 32.6 pg (27.0-34.0); Mean Corpuscular Volume 92.9 fL (80.0-100.0); Mean Platelet Volume 8.3 fL (7.0-11.0); Mono # (Auto) 0.8 th/mm3 (0.0-0.9); Mono % (Auto) 14.9 % (0.0-8.0); Neut # (Auto) 3.6 th/mm3 (1.8-7.7); Neut % (Auto) 63.3 % (16.0-70.0); Platelet Count 197 th/mm3 (150-450); Red Blood Count 4.95 mil/mm3 (4.50-5.90); Red Cell Distribution Width 13.7 % (11.6-17.2); White Blood Count 5.7 th/mm3 (4.0-11.0)
--- NOTE | 2018-07-25 11:58 | XR ---
EXAM DATE: 07/25/2018 11:53 AM EST AGE/SEX: 73 years / Male INDICATIONS: Chest pain and short of breath. CLINICAL DATA: This is the patient's initial encounter. Patient reports that signs and symptoms have been present for 1 day and indicates a pain score of 1/10. MEDICAL/SURGICAL HISTORY: Asthma. A-fib. . Ablation. COMPARISON: [facility], CHEST SINGLE AP, 03/26/2017. . FINDINGS: A single AP view of the chest demonstrates the lungs to be symmetrically aerated without evidence of mass, infiltrate or effusion. The cardiomediastinal contours are unremarkable. Osseous structures a re intact. The aorta is quite tortuous CONCLUSION: Tortuous aorta otherwise unremarkable single view chest Electronically signed by: Yoshi Pretty MD Board Certified Radiologist 07/25/2018 11:56 AM EST
[2018-07-25 12:02] LABS: Activated Partial Thrombo Time 35.2 sec (23.4-31.7); INR 1.1 Ratio; Prothrombin Time 11.5 sec (9.8-11.6)
[2018-07-25 12:14] LABS: Alanine Aminotransferase 43 U/L (12-78); Albumin 3.8 g/dL (3.4-5.0); Anion Gap 8 meq/L (5-15); Aspartate Aminotransferase 30 U/L (15-37); Blood Urea Nitrogen 13 mg/dL (7-18); Calcium 8.9 mg/dL (8.5-10.1); Carbon Dioxide 25.3 meq/L (21.0-32.0); Chloride 97 meq/L (98-107); Glomerular Filtration Rate 77 mL/min (>89); Glucose,Random 116 mg/dL (74-106); Potassium 4.2 meq/L (3.5-5.1); Sodium 130 meq/L (136-145)
[2018-07-25 12:18] LABS: Alkaline Phosphatase 91 U/L (45-117); Creatine Kinase 206 U/L (39-308); Total Protein 7.2 g/dL (6.4-8.2)
[2018-07-25 12:25] LABS: Thyroid Stimulating Hormone 2.84 uIU/mL (0.358-3.740)
[2018-07-25 12:31] LABS: Creatine Kinase MB 5.2 ng/mL (0.5-3.6)
[2018-07-25] MEDS ORDERED: Acetaminophen 325 MG Tablet PO PRN (13:28)
[2018-07-25] MEDS ORDERED: Bisacodyl 10 MG Supp RECTAL PRN (13:28)
--- NOTE | 2018-07-25 18:28 | P.HPIM ---
History of Present Illness Primary Care Physician: Parish Ponce MD Chief Complaint: sob, malaise, sent by Dr Muñiz his cardiology for poss abl/. HR in 30s History of Present Illness: Patient is a 73-year-old male with PMH of prostate cancer, currently on radiation therapy, angina, hyperlipidemia, hypertension, type 2 diabetes, asthma, coronary artery disease, paroxysmal A. fib, hypothyroidism presenting to the emergency department for evaluation of increasing fatigue with any exertion. 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 Muñiz and sent to the emergency department to be admitted for a cardiac ablation. Patient reports a history of the same several years ago. Patient denies any chest pain, abdominal pain, nausea, vomiting peripheral edema, shortness of breath, orthopnea. He states he does get lightheaded at times when he walks. Inpatient Certification Inpatient Certification: I certify that the inpatient services were ordered in accordance with Medicare regulations governing the order. This includes certification that hospital inpatient services are reasonable and necessary and in the case of services not specified as inpatient-only under 42 CFR 419.22(n), that they are appropriately provided as inpatient services in accordance to with the 2-midnight benchmark under 43 CFR 412.3(e) Estimated Total Length of Stay (Days): 3 Plans for Post Hospital Care: Other Review of Systems Review of Systems: all other systems reviewed are negative ON LICENSE OF [facility] Medical History Medical History Angina pectoris (Acute) Asthma (Acute) Atrial fibrillation (Acute) CAD (coronary artery disease) (Acute) Chronic back pain (Acute) Diabetes (Acute) Heart palpitations (Acute) Hernia (Acute) Hyperlipidemia (Acute) Hypertension (Acute) Hypothyroid (Acute) Prostate cancer (Acute) Surgical History Surgical History H/O knee surgery (Acute) Previous back surgery (Acute) Social History Social History Substance History: No History of Abuse Second Hand Smoke Exposure: No Smoking Status: Former smoker Tobacco Type: Cigarettes How Often Do You Have a Drink Containing Alcohol: 2 to 3 times a week Recent Travel in [facility] within the Last 8 Weeks: No Recent Out of Country Travel within the Last 8 Weeks: No Immunization History Tetanus Immunization: >5 Years Medications and Allergies Allergies Allergy/AdvReac Type Severity Reaction Status Date / Time Sulfa (Sulfonamide AdvReac Severe subconjuntival Unverified 03/26/17 10:01 Antibiotics) bleed Home Medications Medication Instructions Recorded Confirmed Type apixaban [Eliquis] 5 mg PO BID 07/25/18 07/25/18 History atorvastatin [Lipitor] 20 mg PO QPM 07/25/18 07/25/18 History clonidine HCl 0.1 mg PO TID 07/25/18 07/25/18 History diltiazem HCl [Cartia XT] 240 mg PO DAILY 07/25/18 07/25/18 History doxazosin [Cardura] 4 mg PO DAILY 07/25/18 07/25/18 History hydrochlorothiazide 12.5 mg PO DAILY 07/25/18 07/25/18 History levothyroxine [Levoxyl] 50 mcg PO DAILY 07/25/18 07/25/18 History losartan 100 mg PO DAILY 07/25/18 07/25/18 History metoprolol tartrate 50 mg PO BID 07/25/18 07/25/18 History Active Medications: Active Medications Acetaminophen (Tylenol) 650 mg PO Q4H PRN PRN Reason: Temp > 100.4 Al Hydroxide/Mg Hydroxide (Milk Of Magnesia Liq) 30 ml PO Q12H PRN PRN Reason: Mild Constipation Apixaban (Eliquis) 5 mg PO BID [facility] Atorvastatin Calcium (Lipitor) 20 mg PO DAILY@1800 [facility] Last Admin: 07/25/18 18:19 Dose: 20 mg Bisacodyl (Dulcolax Supp) 10 mg RECTAL DAILY PRN PRN Reason: SEVERE CONSITIPATION Doxazosin Mesylate (Cardura) 4 mg PO DAILY [facility] Lactulose (Lactulose Liq) 30 ml PO DAILY PRN PRN Reason: SEVERE CONSITIPATION Levothyroxine Sodium (Synthroid) 50 mcg PO DAILY@0600 [facility] Losartan Potassium (Cozaar) 100 mg PO DAILY [facility] Ondansetron HCl (Zofran Inj) 4 mg IV.PUSH Q6H PRN PRN Reason: NAUSEA OR VOMITING Senna/Docusate Sodium (Karolina-Colace) 1 tab PO BID [facility] Sennosides (Senokot) 17.2 mg PO Q12H PRN PRN Reason: Moderate Constipation Sodium Chloride (Ns Flush) 2 ml IV.FLUSH BID VERA Sodium Chloride (Ns Flush) 2 ml IV.FLUSH PRN PRN PRN Reason: FLUSH AFTER USING IV ACCESS Physical Exam Vital signs: Vital Signs 07/25/18 11:19 07/25/18 11:27 07/25/18 11:47 Temperature 97.4 F L Pulse Rate 63 61 57 L Respiratory Rate 18 16 16 Blood Pressure 129/58 L 143/81 H 140/72 Pulse Oximetry 98 99 96 07/25/18 12:22 07/25/18 13:22 07/25/18 13:28 Temperature Pulse Rate 57 L 66 66 Respiratory Rate 16 20 20 Blood Pressure 140/72 129/77 129/77 Pulse Oximetry 96 99 99m Intake & Output 07/24/18 07/25/18 07/25/18 18:59 06:59 18:59 Weight 81.647 kg Narrative: GENERAL: Pleasant 73 yo male, well nourished, well developed patient , appears in nad. SKIN: Warm and dry. HEAD: Atraumatic. Normocephalic. EYES: Pupils equal and round. No scleral icterus. No injection or drainage. ENT: No nasal bleeding or discharge. Mucous membranes pink and moist. NECK: Trachea midline. No JVD. CARDIOVASCULAR: Irregular rate and rhythm. RESPIRATORY: No accessory muscle use. Clear to auscultation. Breath sounds equal bilaterally. GASTROINTESTINAL: Abdomen soft, non-tender, nondistended. Hepatic and splenic margins not palpable. MUSCULOSKELETAL: Extremities without clubbing, cyanosis, or edema. No obvious deformities. NEUROLOGICAL: Awake and alert. No obvious cranial nerve deficits. Motor grossly within normal limits. Normal speech. PSYCHIATRIC: Appropriate mood and affect; insight and judgment normal. Results Labs CBC & Chem 7: 07/25/18 11:45 07/25/18 11:45 Imaging Impressions Chest X-Ray 07/25/18 11:35 CONCLUSION: Tortuous aorta otherwise unremarkable single view chest Caprini VTE Risk Assessment Caprini VTE Risk Assessment: Moderate/High Risk (score >= 2) Caprini Risk Assessment Model: Point Value = 1 Point Value = 2 Point Value = 3 Point Value = 5 Age 41-60 Minor surgery BMI > 25 kg/m2 Swollen legs Varicose veins or History of unexplained or recurrent spontaneous Oral contraceptives or hormone replacement Sepsis (< 1 month) Serious lung disease, including pneumonia (< 1 month) Abnormal pulmonary function Acute myocardial infarction Congestive heart failure (< 1 month) History of inflammatory bowel disease Medical patient at bed rest Age 61-74 Arthroscopic surgery Major open surgery (> 45 min) Laparoscopic surgery (> 45 min) Malignancy Confined to bed (> 72 hours) Immobilizing plaster cast Central venous access Age >= 75 History of VTE Family history of VTE Factor V Leiden Prothrombin [id number] Lupus anticoagulant Anticardiolipin antibodies Elevated serum homocysteine Heparin-induced thrombocytopenia Other congenital or acquired thrombophilia Stroke (< 1 month) Elective arthroplasty Hip, pelvis, or leg fracture Acute spinal cord injury (< 1 month) Prophylaxis Regimen: Total Risk Factor Score Risk Level Prophylaxis Regimen 0-1 Low Early ambulation 2 Moderate Order ONE of the following: *Sequential Compression Device (SCD) *Heparin 5000 units SQ BID 3-4 Higher Order ONE of the following medications: *Heparin 5000 units SQ TID *Enoxaparin/Lovenox 40 mg SQ daily (WT < 150 kg, CrCl > 30 mL/min) *Enoxaparin/Lovenox 30 mg SQ daily (WT < 150 kg, CrCl > 10-29 mL/min) *Enoxaparin/Lovenox 30 mg SQ BID (WT < 150 kg, CrCl > 30 mL/min) AND/OR *Sequential Compression Device (SCD) 5 or more Highest Order ONE of the following medications: *Heparin 5000 units SQ TID (Preferred with Epidurals) *Enoxaparin/Lovenox 40 mg SQ daily (WT < 150 kg, CrCl > 30 mL/min) *Enoxaparin/Lovenox 30 mg SQ daily (WT < 150 kg, CrCl > 10-29 mL/min) *Enoxaparin/Lovenox 30 mg SQ BID (WT < 150 kg, CrCl > 30 mL/min) AND *Sequential Compression Device (SCD) Assessment and Plan Plan 73 yo male with past medical history significant for prostate cancer, currently on radiation therapy, angina, hyperlipidemia, hypertension, type 2 diabetes, asthma, coronary artery disease, paroxysmal A. fib, hypothyroidism presented to ED sent by his cardiology Dr Torres for poss ablation with Dr Acosta for Afib. Patient is afiv with avr at times. He is noted with Afib with slow VR with a HR in 30s Afib with SVR Hyponatremia HTN HLD. DM2, diet controlled Hypothyroidism Prostate CA undergoing chemo trop neg , ekg reviewed. Sent By Dr Muñiz for poss ablation by Dr Acosta tomorrow. Consult Dr Acosta NPO after midnight. So far HR has been in upper 50s and in 60s. Hold clonidine, cardizem and metoprolol. Monitor HR on tele Monitor BP Also hold HCTZ as noted with hyponatremia, check cbc, bmp tomorrow Restart home meds as appropriate. Continue eliquis per Dr Muñiz DVT ppx eliquis Discussed with the patient, nurse, ED physician
--- NOTE | 2018-07-25 20:31 | ECG ---
Date Performed: 07/25/2018 Time Performed: 11:38:22 PTAGE: 73 years EKG: ATRIAL FLUTTER/TACHYCARDIA WITH SLOW VENTRICULAR RESPONSE BORDERLINE LEFT AXIS DEVIATION PO SSIBLE RIGHT VENTRICULAR CONDUCTION DELAY When compared to previous tracing, patient is now in atrial Flutter, previous tracing was Sinus rhythm . ABNORMAL RHYTHM ECG PREVIOUS TRACING : 01/30/2016 06.24.46 DOCTOR: Marta Garcia Interpretating Date/Time 07/25/2018 20:31:01
[2018-07-25] MEDS ORDERED: Melatonin 5 MG Tablet PO PRN (20:35)
[2018-07-25] MEDS: Senna/Docusate Sodium 8.6/50 MG Tablet PO SCH (21:18)
[2018-07-26] MEDS ORDERED: Chlorhexidine Gluconate 2% 1 Pack (2 Cloths) TOPICAL ONE (00:01)
[2018-07-26] MEDS ORDERED: Sodium Chlor 0.9% Inj 500 ML IV.SIG SCH (01:00)
[2018-07-26] MEDS: Levothyroxine 50 MCG Tablet PO SCH (05:33)
[2018-07-26 08:03] LABS: Baso % (Auto) 0.3 % (0.0-2.0); Eos # (Auto) 0.1 th/mm3 (0.0-0.4); Eos % (Auto) 1.5 % (0.0-4.0); Hematocrit 48.2 % (39.0-51.0); Hemoglobin 16.8 gm/dL (13.0-17.0); Lymph # (Auto) 0.7 th/mm3 (1.0-4.8); Lymph % (Auto) 15.4 % (9.0-44.0); Mean Corpuscular HGB Conc 34.9 % (32.0-36.0); Mean Corpuscular Hemoglobin 32.3 pg (27.0-34.0); Mean Corpuscular Volume 92.6 fL (80.0-100.0); Mean Platelet Volume 8.3 fL (7.0-11.0); Mono # (Auto) 0.7 th/mm3 (0.0-0.9); Mono % (Auto) 14.4 % (0.0-8.0); Neut # (Auto) 3.3 th/mm3 (1.8-7.7); Neut % (Auto) 68.4 % (16.0-70.0); Platelet Count 188 th/mm3 (150-450); Red Cell Distribution Width 13.8 % (11.6-17.2); White Blood Count 4.8 th/mm3 (4.0-11.0)
[2018-07-26 08:09] LABS: INR 1.1 Ratio; Prothrombin Time 11.4 sec (9.8-11.6)
[2018-07-26 08:37] LABS: Albumin 3.5 g/dL (3.4-5.0); Anion Gap 8 meq/L (5-15); Aspartate Aminotransferase 24 U/L (15-37); Blood Urea Nitrogen 9 mg/dL (7-18); Calcium 8.8 mg/dL (8.5-10.1); Carbon Dioxide 27.5 meq/L (21.0-32.0); Chloride 98 meq/L (98-107); Glomerular Filtration Rate Greater Than 89 mL/min (>89); Glucose,Random 123 mg/dL (74-106); Potassium 3.6 meq/L (3.5-5.1); Sodium 133 meq/L (136-145)
[2018-07-26 08:38] LABS: Alanine Aminotransferase 39 U/L (12-78)
[2018-07-26 08:40] LABS: Alkaline Phosphatase 87 U/L (45-117)
[2018-07-26] MEDS ORDERED: dilTIAZem CD 240 MG Capsule PO SCH (10:00)
[2018-07-26] MEDS ORDERED: Metoprolol Tartrate 50 MG Tablet PO SCH (10:00)
--- NOTE | 2018-07-26 10:19 | P.PNIM ---
Subjective Interval history: 73 yo male with DM, AFib admitted for AFib with RVR. This morning feels well other than being a bit thirsty (NPO). No CP/SOB. No palpitations. Had cough with sputum for last several days which is improving now. No fever. Physical Exam Vital signs: Vital Signs 07/25/18 11:19 07/25/18 11:27 07/25/18 11:47 Temperature 97.4 F L Pulse Rate 63 61 57 L Respiratory Rate 18 16 16 Blood Pressure 129/58 L 143/81 H 140/72 Pulse Oximetry 98 99 96 07/25/18 12:22 07/25/18 13:22 07/25/18 13:28 Temperature Pulse Rate 57 L 66 66 Respiratory Rate 16 20 20 Blood Pressure 140/72 129/77 129/77 Pulse Oximetry 96 99 99 07/25/18 19:10 07/25/18 20:00 07/25/18 23:10 Temperature 98.2 F 98.1 F Pulse Rate 82 75 82 Respiratory Rate 18 18 Blood Pressure 156/92 H 158/88 H Pulse Oximetry 97 96 07/26/18 00:00 07/26/18 04:00 07/26/18 05:05 Temperature 98.1 F 97.9 F Pulse Rate 82 121 H 109 H Respiratory Rate 18 18 Blood Pressure 158/88 H 174/86 H Pulse Oximetry 96 95 07/26/18 08:00 Temperature 98.4 F Pulse Rate 73 Respiratory Rate 16 Blood Pressure 182/105 H Pulse Oximetry 94 L Intake & Output 07/25/18 07/26/18 07/26/18 18:59 06:59 18:59 Weight 81.647 kg 167.64 kg Other: Date of Last Bowel Movement 07/25/18 Weight On Admission 167.64 kg Narrative: Gen: WDWN adult white male sitting up in bed in NAD ENT: Mucous membranes with slightly decreased moisture but not dry Resp: No dyspnea. CTAB. No crackles/wheezes. CV: Tachycardic, irregularly irregular rhythm. Monitor reveals atrial fibrillation. Normal S1/S2. No MRG. Abd: Soft, NDNT. MSK: No cyanosis or edema. Moves all extremities x4. Neuro: Awake and alert. Results - Labs CBC & Chem 7: 07/26/18 07:26 07/26/18 07:26 Laboratory Results - last 24 hr 07/25/18 07/25/18 07/25/18 11:45 11:45 11:45 WBC 5.7 RBC 4.95 Hgb 16.1 Hct 46.0 MCV 92.9 MCH 32.6 MCHC 35.1 RDW 13.7 Plt Count 197 MPV 8.3 Neut % (Auto) 63.3 Lymph % (Auto) 19.4 Pepin % (Auto) 14.9 H Eos % (Auto) 2.0 Baso % (Auto) 0.4 Neut # (Auto) 3.6 Lymph # (Auto) 1.1 Pepin # (Auto) 0.8 Eos # (Auto) 0.1 Baso # (Auto) 0.0 WBC Differential . Differential Comment Auto diff final PT INR APTT Sodium 130 L Potassium 4.2 Chloride 97 L Carbon Dioxide 25.3 Anion Gap 8 BUN 13 Creatinine 0.96 Estimated GFR 77 L Random Glucose 116 H Calcium 8.9 Magnesium Total Bilirubin 0.7 AST 30 ALT 43 Alkaline Phosphatase 91 Total Creatine Kinase 206 CK-MB (CK-2) 5.2 H Troponin I Less than 0.02 L B-Natriuretic Peptide 197 H Total Protein 7.2 Albumin 3.8 TSH 07/25/18 07/25/18 07/26/18 11:45 11:45 07:26 WBC 4.8 RBC 5.20 Hgb 16.8 Hct 48.2 MCV 92.6 MCH 32.3 MCHC 34.9 RDW 13.8 Plt Count 188 MPV 8.3 Neut % (Auto) 68.4 Lymph % (Auto) 15.4 Pepin % (Auto) 14.4 H Eos % (Auto) 1.5 Baso % (Auto) 0.3 Neut # (Auto) 3.3 Lymph # (Auto) 0.7 L Pepin # (Auto) 0.7 Eos # (Auto) 0.1 Baso # (Auto) 0.0 WBC Differential . Differential Comment Auto diff final PT 11.5 INR 1.1 APTT 35.2 H Sodium Potassium Chloride Carbon Dioxide Anion Gap BUN Creatinine Estimated GFR Random Glucose Calcium Magnesium 2.0 Total Bilirubin AST ALT Alkaline Phosphatase Total Creatine Kinase CK-MB (CK-2) Troponin I B-Natriuretic Peptide Total Protein Albumin TSH 2.840 07/26/18 07/26/18 07:26 07:26 WBC RBC Hgb Hct MCV MCH MCHC RDW Plt Count MPV Neut % (Auto) Lymph % (Auto) [place] % (Auto) Eos % (Auto) Baso % (Auto) Neut # (Auto) Lymph # (Auto) Pepin # (Auto) Eos # (Auto) Baso # (Auto) WBC Differential Differential Comment PT 11.4 INR 1.1 APTT Sodium 133 L Potassium 3.6 Chloride 98 Carbon Dioxide 27.5 Anion Gap 8 BUN 9 Creatinine 0.71 Estimated GFR Greater than 89 Random Glucose 123 H Calcium 8.8 Magnesium Total Bilirubin 0.5 AST 24 ALT 39 Alkaline Phosphatase 87 Total Creatine Kinase CK-MB (CK-2) Troponin I B-Natriuretic Peptide Total Protein 7.0 Albumin 3.5 TSH - Imaging Impressions Chest X-Ray 07/25/18 11:35 CONCLUSION: Tortuous aorta otherwise unremarkable single view chest Assessment and Plan - Assessment (1) Atrial fibrillation with RVR Code(s): I48.91 - Unspecified atrial fibrillation Status: Acute (2) Hyponatremia Code(s): E87.1 - Hypo-osmolality and hyponatremia Status: Acute (3) Essential hypertension Code(s): I10 - Essential (primary) hypertension Status: Chronic (4) Type 2 diabetes mellitus Code(s): E11.9 - Type 2 diabetes mellitus without complications Status: Chronic (5) Prostate cancer Code(s): C61 - Malignant neoplasm of prostate Status: Chronic (6) Hypothyroidism Code(s): E03.9 - Hypothyroidism, unspecified Status: Chronic (7) CAD (coronary artery disease) Code(s): I25.10 - Atherosclerotic heart disease of [place] coronary artery without angina pectoris Status: Chronic - Plan 73 yo male admitted with: Atrial fibrillation in RVR Sent by television analyzer for AFib with BRADYCARDIA, ECG and monitor now show AFib with RVR, asymptomatic, possibly this is a tachy-rosa m syndrome but difficult to tell on medication * Consulted Dr. Acosta for EP study +/- ablation * Hold CR diltiazem and metoprolol tartarate * Give 60 mg immediate-release diltiazem for current RVR * Hold Eliquis in preparation for procedure Hyponatremia Unclear etiology but likely chronic in nature, improving today * Holding HCTZ * Trend BMP DM Diet-controlled, sugars at goal * Accu-check, no SSI unless above goal 140-180 HTN BP mildly elevated but overall at goal * Monitor, resume BP meds when able based on issues noted above Prostate Cancer Receiving chemo treatment, no symptoms at present CAD With stable angina, no symptoms at present, continue statin FEN: NPO in anticipation of possible procedure; will resume diet if not getting procedure today Dispo: Home pending cardiology work-up and clearance, anticipate 1-2 more days - Attending Attestation The exam, history, and the medical decision-making described in the above note were completed with the assistance of the mid-level provider. I reviewed and agree with the findings presented. I attest that I had a [id number] encounter with the patient on the same day, and personally performed and documented my assessment and findings in the medical record. Patient seen and examined. Currently heart rate is controlled. He denies chest pain or shortness of breath. On exam, heart rate is in the 60s, irregular rhythm. No significant heart murmurs. Lungs clear to auscultation bilaterally No lower extremity edema Seems to have tachy rosa m syndrome. Case discussed with Dr. Acosta Patient had Eliquis yesterday. He will be considered for ablation tomorrow morning. 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 transplanted heart: [place] heart Associated angina: with stable angina Qualified Code(s): I25.118 - Atherosclerotic heart disease of [place] coronary artery with other forms of angina pectoris
[2018-07-26] MEDS: Senna/Docusate Sodium 8.6/50 MG Tablet PO SCH ×2 (10:36→21:11)
[2018-07-26] MEDS: Doxazosin 4 MG Tablet PO SCH (10:45)
[2018-07-26] MEDS ORDERED: dilTIAZem 60 MG Tablet PO ONE (11:00)
[2018-07-26] MEDS: dilTIAZem 60 MG Tablet PO SCH ×2 (16:37→18:52)
[2018-07-26] MEDS ORDERED: LORazepam 1 MG Tablet SL PRN (18:10)
[2018-07-26] MEDS ORDERED: Sodium Chlor 0.9% Inj 500 ML IV.CONT SCH ×2 (19:00)
[2018-07-26] MEDS ORDERED: dilTIAZem Inj 125 MG in Sodium Chlor 0.9% Inj 100 ML IV.CONT PRN (20:46)
[2018-07-26] MEDS: dilTIAZem Inj 125 MG in Sodium Chlor 0.9% Inj 100 ML IV.CONT PRN (22:48)
[2018-07-27] MEDS: dilTIAZem 60 MG Tablet PO SCH ×4 (03:12→21:56)
[2018-07-27] MEDS: Levothyroxine 50 MCG Tablet PO SCH (06:10)
[2018-07-27 07:47] LABS: Calcium 8.7 mg/dL (8.5-10.1); Carbon Dioxide 24.6 meq/L (21.0-32.0); Potassium 3.7 meq/L (3.5-5.1)
--- NOTE | 2018-07-27 07:52 | MB ---
cc: Mauricio Acosta MD DATE: 07/26/2018 REASON FOR CONSULTATION: Atrial flutter, fast ventricular response. HISTORY OF PRESENT ILLNESS: Mr. Beltran is a 73-year-old gentleman with history of high blood pressure, hyperlipidemia, atrial flutter, coronary artery disease, diabetes mellitus, admitted due to atrial flutter with fast ventricular response, tachybrady syndrome. During hospitalization, negative chronotropic medication was held. I was consulted for evaluation and management. The chart was reviewed. The patient was evaluated. I discussed the case extensively with Dr. Muñiz. ALLERGIES: SULFA. SOCIAL HISTORY: Negative for smoking and drinking. FAMILY HISTORY: Noncontributory to his current medical condition. MEDICATIONS: 1. He is on acetaminophen. 2. He is on Eliquis 5 mg twice a day. 3. Atorvastatin 20 mg a day. 4. Cardizem CD 60 mg every 6 hours. 5. Enalapril 6. Levoxyl 50 mcg a day. 7. Losartan 100 mg a day. 8. Melatonin. 9. Zofran. REVIEW OF SYSTEMS: Currently, the patient is in no chest pain. No chest discomfort. Some palpitations. No fever. PHYSICAL EXAMINATION: GENERAL: Alert, fully oriented. VITAL SIGNS: Blood pressure 132/81, pulse 80, respiratory rate 18. LUNGS: Ventilated. CARDIOVASCULAR: S1, S2. No gallop. No murmur. ABDOMEN: Soft. No masses. EXTREMITIES: No edema. LABORATORY DATA: Electrocardiogram atrial flutter, diffuse ST changes. LABORATORY DATA: Hemoglobin 16.8, white blood cell 4.8. INR 1.1. Potassium 3.6, creatinine is 0.71. ASSESSMENT AND RECOMMENDATIONS: Mr. Beltran was on calcium channel jackelin and beta jackelin. He has some severe bradycardia. He had tachybrady syndrome. He has atrial flutter. Very difficult to control. Electrophysiology study and ablation discussed. The risk, the nature, and the benefits of the procedure were clearly stated to him. Risks include pneumothorax, cardiac perforation, stroke, and even . The patient understood and agreed to proceed. The procedure will be scheduled for tomorrow afternoon. Mauricio Acosta MD /rm/july , 06:10 PM , 06:17 PM
[2018-07-27] MEDS: Senna/Docusate Sodium 8.6/50 MG Tablet PO SCH ×2 (08:27→21:57)
[2018-07-27] MEDS: Doxazosin 4 MG Tablet PO SCH (08:28)
[2018-07-27] MEDS: dilTIAZem Inj 125 MG in Sodium Chlor 0.9% Inj 100 ML IV.CONT PRN (10:48)
--- NOTE | 2018-07-27 11:50 | P.PNIM ---
Subjective Interval history: 73 yo male with AFib admitted for bradycardia now with subsequent tachycardia/ RVR. This morning feels well, no CP/SOB, mild anxiety about ablation for this afternoon. Yesterday had elevated HR into the 160s requiring cardizem drip. Physical Exam Vital signs: Vital Signs 07/26/18 12:00 07/26/18 16:00 07/26/18 20:00 Temperature 98.5 F 98.3 F 98.6 F Pulse Rate 160 H 134 H 165 H Respiratory Rate 16 18 16 Blood Pressure 132/81 142/95 H 148/97 H Pulse Oximetry 94 L 96 97 07/26/18 21:10 07/26/18 22:55 07/27/18 00:00 Temperature 98.5 F Pulse Rate 165 H 116 H 112 H Respiratory Rate 16 Blood Pressure 160/96 H Pulse Oximetry 96 07/27/18 04:00 07/27/18 07:15 07/27/18 08:00 Temperature 97.9 F 97.9 F Pulse Rate 106 H 119 H 85 Respiratory Rate 16 18 Blood Pressure 147/77 H 161/84 H Pulse Oximetry 96 96 07/27/18 10:40 Temperature Pulse Rate Respiratory Rate Blood Pressure Pulse Oximetry 96 Intake & Output 07/26/18 07/27/18 07/27/18 18:59 06:59 18:59 Intake Total 0 / 0 125 / 125 Output Total 850 / 850 Balance 0 / 0 -850 / -850 125 / 125 Weight 168 kg Intake: IV 125 / 125 Cardizem Inj 125 MG In NS Inj 125 / 125 100 ML @ 5 MG/HR 5 mls/hr IV. CONT TITRATE PRN Rx#:[id number] Other 0 / 0 Output: Urine 850 / 850 Other: # Voids 2 Date of Last Bowel Movement 07/25/18 07/25/18 07/25/18 Narrative: Gen: WDWN adult white male sitting up in bed in NAD ENT: Mucous membranes with slightly decreased moisture but not dry Resp: No dyspnea. CTAB. No crackles/wheezes. CV: Mildly tachycardic (estimated HR 110), irregularly irregular rhythm. Monitor reveals atrial fibrillation. Normal S1/S2. No MRG. Abd: Soft, NDNT. MSK: No cyanosis or edema. Moves all extremities x4. Neuro: Awake and alert. Results - Labs CBC & Chem 7: 07/26/18 07:26 07/27/18 05:57 Laboratory Results - last 24 hr 07/27/18 05:57 Sodium 135 L Potassium 3.7 Chloride 102 Carbon Dioxide 24.6 Anion Gap 8 BUN 14 Creatinine 0.85 Estimated GFR 89 Random Glucose 131 H Calcium 8.7 Assessment and Plan - Assessment (1) Atrial fibrillation with RVR Code(s): I48.91 - Unspecified atrial fibrillation Status: Acute (2) Hyponatremia Code(s): E87.1 - Hypo-osmolality and hyponatremia Status: Acute (3) Essential hypertension Code(s): I10 - Essential (primary) hypertension Status: Chronic (4) Type 2 diabetes mellitus Code(s): E11.9 - Type 2 diabetes mellitus without complications Status: Chronic (5) Prostate cancer Code(s): C61 - Malignant neoplasm of prostate Status: Chronic (6) Hypothyroidism Code(s): E03.9 - Hypothyroidism, unspecified Status: Chronic (7) CAD (coronary artery disease) Code(s): I25.10 - Atherosclerotic heart disease of [place] coronary artery without angina pectoris Status: Chronic - Plan 73 yo male admitted with: Atrial fibrillation in RVR 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 Acosta, appreciate recs * Ablation scheduled for this afternoon * Hold CR diltiazem and metoprolol tartarate * Give 60 mg immediate-release diltiazem PO Q6H * Diltiazem drip titrated for HR if needed * Hold Eliquis in preparation for procedure; can resume POD 1 if no contraindication Hyponatremia Unclear etiology but likely chronic in nature, improving today * Holding HCTZ * Trend BMP DM Diet-controlled, sugars at goal * Accu-check, no SSI unless above goal 140-180 HTN BP mildly elevated but overall at goal * Monitor, resume BP meds when able based on issues noted above Prostate Cancer Receiving chemo treatment, no symptoms at present CAD With stable angina, no symptoms at present, continue statin FEN: NPO in anticipation of possible procedure; will resume diet if not getting procedure today Dispo: Home pending ablation / cardiology clearance, anticipate 1-2 more days - Attending Attestation The exam, history, and the medical decision-making described in the above note were completed with the assistance of the mid-level provider. I reviewed and agree with the findings presented. I attest that I had a [id number] encounter with the patient on the same day, and personally performed and documented my assessment and findings in the medical record. Patient seen and examined. Heart rate is elevated. He denies chest pain or shortness of breath. On exam, heart rate is in the 120s, irregular rhythm. No significant heart murmurs. Lungs clear to auscultation bilaterally No lower extremity edema Patient with tachybradycardia syndrome. He will have EP studies today and possible ablation. (4) Type 2 diabetes mellitus Qualifiers: Diabetes mellitus residential insulin use: without residential use Diabetes mellitus complication status: without complication Qualified Code(s): E11.9 - Type 2 diabetes mellitus without complications (6) Hypothyroidism Qualifiers: Hypothyroidism type: unspecified Qualified Code(s): E03.9 - Hypothyroidism, unspecified (7) CAD (coronary artery disease) Qualifiers: Coronary Disease-Associated Artery/Lesion type: [place] artery [place] vs. transplanted heart: [place] heart Associated angina: with stable angina Qualified Code(s): I25.118 - Atherosclerotic heart disease of [place] coronary artery with other forms of angina pectoris
[2018-07-27] MEDS ORDERED: Lidocaine 1% Inj 50 ML Vial ONE (18:09)
[2018-07-27] MEDS ORDERED: fentaNYL Citrate Inj 100 MCG/2 ML Ampul ONE (18:17)
[2018-07-27] MEDS ORDERED: Isoproterenol HCl Inj 0.2 MG/ML Ampul ONE (18:17)
--- NOTE | 2018-07-27 19:11 | CATHPROC ---
Patient Name: Levi Beltran Study #: [id number] Initial MD: Mauricio Acosta Date of : 1945 Study Date: 07/27/2018 Cardiac Catheterization Report 07/27/2018 7:10:50 PM Financial #: [id number] 1 of 8 Patient Name: Levi Beltran Study #: [id number] Initial MD: Mauricio Acosta Date of : 1945 Study Date: 07/27/2018 Entire Case Report Patient Information Patient Name Levi Beltran Date of 1945 Age 73 years Financial # [id number] Gender M AlternateID Lab Number 2 Room Number 1426 Height (in) 60.0 Height (cm) 152.4 BSA 1.77 Weight (lbs) 176.0 Weight (kg) 80.0 Patient Address/Phone Number Home Address [facility] Home Phone Number [phone] [facility] [address] Study Information Study Number Admission Scheduled Start Study Start [id number] Jul 25 2018 1:31PM 07/27/2018 Jul 27 2018 5:51PM [facility] Cardiac Catheterization Admit Source Facility Department Other [facility] - [facility] Administrative Engineer Physician and Clinical Staff Initial Mauricio Ramos Fur Puller Jay Varela,RT(R) Fur Puller Anna العلي RN Other Anesthesia, V BELT CURER Recorder Maria Del Rosario Blackmon RN Recorder Anna العلي,JIMMY Scrub Malena Briones RCIS Procedures Performed Procedure Location (Site) Vessel Name RF Ablation Isthmus Other 07/27/2018 7:10:50 PM Financial #: [id number] 2 of 8 Patient Name: Levi Beltran Study #: [id number] Initial MD: Mauricio Acosta Date of : 1945 Study Date: 07/27/2018 Equipment Time Reservoir Engineer Description Size Mfg Part Number Used/Scraped BIOSENSE RODRIGUEZ CATHETER, CELSIUS DS, 8MM, F [id number] 18:47 FR 7 Used INC. TYPE QUAD *[id number] 18:12 [employer] BLANKET,WARM AIR CCL * Used *[id number] 18:12 [employer] INDUSTRIES PACK, CCL CUSTOM * Used *[id number] 18:12 [employer] PACER ALEXANDRA, LIMB * 2530 *[id number] Used [id number] 18:39 [employer] MEDICAL CATHETER, JSN, QUAD FR 5 Used *[id number] 18:39 [employer] MEDICAL CATHETER, JSN, QUAD FR 5 Used *[id number] 18:39 [employer] MEDICAL CATHETER, JSN, QUAD FR 5 Used *[id number] 18:39 [employer] MEDICAL CATHETER, JSN, QUAD FR 5 Used *[id number] 18:38 [employer] J[employer] MEDICAL SHEATH, EPS, FR5 FAST CATH FR 5 Used *[id number] 18:38 [employer] MEDICAL SHEATH, EPS, FR5 FAST CATH FR 5 Used *[id number] 18:38 [employer] MEDICAL SHEATH, EPS, FR5 FAST CATH FR 5 Used *[id number] 18:38 [employer] MEDICAL SHEATH, EPS, FR6 FAST CATH FR 6 Used *[id number] 18:38 [employer] JC MEDICAL SHEATH, EPS, FR8 FAST CATH FR 8 Used *[id number] Insurance Information Insurance Payor Medicare Third Libertarian Third Libertarian Number MEDICARE A B MCRAB History: Allergies Allergy Reaction Sulfa subconjuntival bleed Sulfa (Sulfonamide Antibiotics) subconjuntival bleed History: Risk Factors Family History of Hypertension Dyslipidemia Previous VT Previous Heart Failure Premature CAD Yes Yes Yes No No Prior Valve Prior PCI Prior CABG Surgery No No No Cerebrovascular Peripheral Artery Chronic Lung On Dialysis Diabetes Diabetes Therapy Disease Disease Disease No No No Yes Yes Diet 07/27/2018 7:10:50 PM Financial #: [id number] 3 of 8 Patient Name: Leiv Beltran Study #: [id number] Initial MD: Mauricio Acosta Date of : 1945 Study Date: 07/27/2018 Labs Hgb (g/dl) Hct (%) WBC (l/cumm) Platelets (thousands) 11.60-17.00 35.00-51.00 4.00-11.00 150.00-450.00 16.8 48.2 4.8 188 Glucose (mg/dl) BUN (mg/dl) Creatinine (mg/dl) BUN:Creatinine (1:x) 74.00-106.00 7.00-18.00 0.50-1.30 10.00-20.00 131 14 0.8 17.5 Na (meq/l) K (meq/l) 136.00-145.00 3.50-5.10 135 3.7 INR (PTT:PT) 0.90-1.10 1.1 CPK-MB (ng/ML) 0.50-3.60 Not Drawn Medication Medication Total Dose (Bolus/Oral) Medication Total Dosage/Unit 1% XYLOCAINE 40 mL Medications (Bolus/Oral) Medication Time Given Dosage/Unit Administered By Reason 1% XYLOCAINE 07/27/2018 6:31:45 PM 20 mL Mauricio Acosta As per physicians verba l order 20 mL 1% XYLOCAINE given in lab by Mauricio Acosta in Left Groin via Subcutaneous. Ordered by Vargas Acosta. Reason: As per physicians verbal order. 1% XYLOCAINE 07/27/2018 6:34:43 PM 20 mL Mauricio Acosta 20 mL 1% XYLOCAINE given in lab by Mauricio Acosta in Right Groin via Subcutaneous. Ordered by Charlee Acosta. 07/27/2018 7:10:50 PM Financial #: [id number] 4 of 8 Patient Name: Levi Beltran Study #: [id number] Initial MD: Mauricio Acosta Date of : 1945 Study Date: 07/27/19 19 Medication (Drip) Medication Time Given Dosage/Unit Concentration/Unit Diluent (ml) Solution ISUPREL 07/27/2018 6:52:00 PM 10 mcg/min 1 mg 250 NaCl .9 10 mcg/min ISUPREL given in lab by Mauricio Acosta via Peripheral IV. Pump/Drip Flow = 150 ml/hr using NaCl .9 with a concentration of 1 mg in 250 ml. Ordered by Mauricio Acosta. IV Solutions 07/27/2018 6:11:02 PM 0 mL (IV) NaCl .9 IV Solutions given in lab by Maria Del Rosario Blackmon RN in Right Antecubital via Peripheral IV. Pump/Drip Fl ow = 30 ml/hr using NaCl .9. Ordered by Mauricio Acosta. Reason: As per physicians verbal order. IV Solutions 07/27/2018 6:12:06 PM 0 mL (IV) NaCl .9 IV Solutions given in lab by Maria Del Rosario Blackmon RN in Left Forearm via Peripheral IV. Pump/Drip Flow = 30 ml/hr using NaCl .9. Ordered by Mauricio Acosta. Reason: As per physicians verbal order. Initial Case Assessment Cardiovascular HR Rhythm NIBP 144 AFlutter 136/95 Edema Present Skin color Skin None Normal Warm Dry Circulatory - Right Pulses Dorsalis Pedis 1 Scale (0,1,2,3,4,d) Circulatory - Left Pulses Dorsalis Pedis 1 Scale (0,1,2,3,4,d) Circulatory - Lower Extremities Color Lower Right Color Lower Left Normal Normal Neurological State Oriented to time-place- Alert Moves all extremities person Respiration - General Respiration Rate SpO2 (%) (B/min) 18 98 07/27/2018 7:10:50 PM Financial #: [id number] 5 of 8 Patient Name: Levi Beltran Study #: [id number] Initial MD: Mauricio Acosta Date of : 1945 Study Date: 07/27/2018 Final Case Assessment Cardiovascular HR Rhythm NIBP Chest Pain 90 SR 101/55 0 Edema Present Skin color Skin None Normal Warm Dry Circulatory - Right Pulses Dorsalis Pedis 1 Scale (0,1,2,3,4,d) Circulatory - Left Pulses Dorsalis Pedis 1 Scale (0,1,2,3,4,d) Neurological State Oriented to time-place- Alert Moves all extremities person Respiration - General Respiration Rate SpO2 (%) O2 (lpm) (B/min) 18 96 4 Chronological Log Time Study Chronological Log 17:51:47 Patient arrived via Bed. 17:51:49 Patient Name, D.O.B, / Armband Verified By R.N. 17:51:50 Consent signed by the physician and the patient and verified by the Highway Administrative Engineer staff. 17:51:50 Pre-op and post- op instructions given; patient acknowledges understanding of instructions. 17:51:51 Verbal Stimulation=2 Physical Stimulation=2 Airway=2 Respiration=2 TOTAL=8. (0=absent, 1=li mited, 2=present) 17:51:56 Patient has been NPO for More than 6Hrs. 17:51:58 Skin Breakdown- none per pt 17:52:52 Patient Warmer Placed on the Table. 17:53:03 History and physical on the chart or being dictated. 17:55:54 Disposable Defibrillator Pads Placed On Patient. 17:55:55 Traci Prominences Protected 07/27/2018 7:10:50 PM Financial #: [id number] 6 of 8 Patient Name: Levi Beltran Study #: [id number] Initial MD: Mauricio Acosta Date of : 1945 Study Date: 07/27/2018 Assessment: Initial Case, DM=980 BPM, Rhythm=AFlutter, BXSD=150/95 mmhg, Edema=None, Color=Norm al, Skin = Warm, Dry Right Pulses: Shon Ped=1 Left Pulses: Shon Ped=1 18:00:04 Lower Right Extremities: Color=Normal Lower Left Extremities: Color=Normal Neurological: State=Alert, Ox3, DUGGAN Respiration: Resp=18 B/min, SpO2=98 % 18:10:00 A # 20 IV was noted in the Antecubital (right). Grade = 0 18:10:01 A # 20 IV was noted in the Forearm (left). Grade = 0 IV Solutions given in lab by Maria Del Rosario Blackmon RN in Right Antecubital via Peripheral IV. Pump/D rip Flow = 30 ml/hr 18:11:02 using NaCl .9. Ordered by Mauricio Acosta. Reason: As per physicians verbal order. IV Solutions given in lab by Maria Del Rosario Blackmon RN in Left Forearm via Peripheral IV. Pump/Drip F low = 30 ml/hr using 18:12:06 NaCl .9. Ordered by Mauricio Acosta. Reason: As per physicians verbal order. 18:13:06 Table restraints applied according to hospital policy 18:13:54 Reference ECG taken 18:18:01 Bilateral groins prepped with 2% chlorhexidine, and draped after a 3 minute waiting time. 18:29:02 MD arrived. Time Out. Correct patient, procedure, procedure equipment, site and side verified with physicia n present. Time 18:31:22 concurred by MD individual staff and V BELT CURER. Time Out #2 - Consents verified, patient in correct position, all results are labled and displa yed, safety precautions 18:31:27 taken, antibiotics administered. Time out concurred by MD, individual staff and V BELT CURER in procedu re 20 mL 1% XYLOCAINE given in lab by Mauricio Acosta in Left Groin via Subcutaneous. Ordered by Mauricio Mares. 18:31:45 Reason: As per physicians verbal order. 18:32:10 Case Start 18:32:55 Vascular access was obtained in the Fem Vein (left). 18:33:10 Vascular access was obtained in the Fem Vein (left). 18:33:45 Vascular access was obtained in the Fem Vein (left). 18:34:12 A SHEATH, EPS, FR5 FAST CATH FR 5 was advanced into the Fem Vein (left) using the Modified Seldinger technique. 18:34:28 A SHEATH, EPS, FR5 FAST CATH FR 5 was advanced into the Fem Vein (left) using the Modified Seldinger technique. 18:34:29 A SHEATH, EPS, FR5 FAST CATH FR 5 was advanced into the Fem Vein (left) using the Modified Seldinger technique. 18:34:43 20 mL 1% XYLOCAINE given in lab by Mauricio Acosta in Right Groin via Subcutaneous. Ordered b Mauricio Oconnell. 18:34:51 Vascular access was obtained in the Fem Vein (right). 18:34:53 Vascular access was obtained in the Fem Vein (right). 18:35:06 A SHEATH, EPS, FR6 FAST CATH FR 6 was advanced into the Fem Vein (right) using the Modified Seldinger technique. 18:36:26 A SHEATH, EPS, FR8 FAST CATH FR 8 was advanced into the Fem Vein (right) using the Modified Seldinger technique. A CATHETER, JSN, QUAD FR 5 was advanced vis Fem Vein (right) and placed in the CS. Placement wa s visually 18:40:09 confirmed under fluoroscopy. A CATHETER, JSN, QUAD FR 5 was advanced vis Fem Vein (left) and placed in the HIS. Placement wa s visually 18:40:27 confirmed under fluoroscopy. A CATHETER, JSN, QUAD FR 5 was advanced vis Fem Vein (left) and placed in the HRA. Placement wa s visually 18:40:32 confirmed under fluoroscopy. A CATHETER, JSN, QUAD FR 5 was advanced vis Fem Vein (left) and placed in the RVA. Placement kiki law visually 18:40:34 confirmed under fluoroscopy. 18:41:30 ep study in progress 07/27/2018 7:10:50 PM Financial #: [id number] 7 of 8 Patient Name: Levi Beltran Study #: [id number] Initial MD: Mauricio Acosta Date of : 1945 Study Date: 07/27/2018 A CATHETER, CELSIUS DS, 8MM, F TYPE QUAD FR 7 was advanced vis Fem Vein (right) and placed in the Isthmus. 18:46:38 Placement was visually confirmed under fluoroscopy. 18:46:49 RF Ablation of the Isthmus with a CATHETER, CELSIUS DS, 8MM, F TYPE QUAD FR 7. 18:46:56 ablation in progress 10 mcg/min ISUPREL given in lab by Mauricio Acosta via Peripheral IV. Pump/Drip Flow = 150 ml/hr using NaCl .9 with a 18:52:00 concentration of 1 mg in 250 ml. Ordered by Mauricio Acosta. 19:07:22 Catheter(s) removed without difficulty Assessment: Final Case, HR=90 BPM, Rhythm=SR, XUVO=063/55 mmhg, Chest Pain=0, Edema=None, [place] r=Normal, Skin = Warm, Dry Right Pulses: Shon Ped=1 19:07:24 Left Pulses: Shon Ped=1 Neurological: State=Alert, Ox3, DUGGAN Respiration: Resp=18 B/min, SpO2=96 %, O2=4 lpm 19:08:01 Catheter(s) removed without difficulty 19:08:08 Sheath removed; pressure applied to access site. 19:08:22 Case End (Physician broke scrub) 19:08:24 Sterile dressing applied to site 19:08:27 No case complications noted. 19:08:28 Cine recording checked. 19:08:32 Bedside Report will be given. 19:08:59 Defibrillator and ground pads removed. Skin intact. 19:14:10 Patient moved to stretcher End Study - Contrast Media Used In Study Contrast Total Opened (mL) Total Used (mL) Total Wasted (mL) Unspecified 0 0 0 End Study - Maximum Contrast Load Max Contrast Load (mL) 500.0 End Study - Radiation Exposure Fluoro Time Fluoro Dose (mGy) Cine Dose (uGym2) (minutes) 2.3 32 360 End Study - Patient Disposition Complications Transferred To Interventional Outcome No Telemetry Bed successful 07/27/2018 7:10:50 PM Financial #: [id number] 8 8
[2018-07-28 06:09] LABS: Hemoglobin 15.8 gm/dL (13.0-17.0); Mean Corpuscular HGB Conc 34.3 % (32.0-36.0); Mean Corpuscular Hemoglobin 32.3 pg (27.0-34.0); Mean Corpuscular Volume 94.2 fL (80.0-100.0); Mean Platelet Volume 8.2 fL (7.0-11.0); Platelet Count 180 th/mm3 (150-450); Red Blood Count 4.88 mil/mm3 (4.50-5.90); Red Cell Distribution Width 13.9 % (11.6-17.2); White Blood Count 6.3 th/mm3 (4.0-11.0)
[2018-07-28 06:14] LABS: Activated Partial Thrombo Time 30.5 sec (23.4-31.7); INR 1.1 Ratio; Prothrombin Time 11.5 sec (9.8-11.6)
[2018-07-28] MEDS: Levothyroxine 50 MCG Tablet PO SCH (06:25)
[2018-07-28 06:38] LABS: Calcium 8.4 mg/dL (8.5-10.1); Carbon Dioxide 24.6 meq/L (21.0-32.0); Potassium 4.6 meq/L (3.5-5.1)
--- NOTE | 2018-07-28 08:17 | ECG ---
Date Performed: 07/27/2018 Time Performed: 20:01:46 PTAGE: 73 years EKG: Sinus rhythm Left axis deviation rSr'(V1) - probable normal variant Borderline ECG PREVIOUS TRACING : 07/25/2018 11.38 Compared to previous tracing, sinus rhythm has replaced atr ial fib/flutter. DOCTOR: Douglas Addison Interpretating Date/Time 07/28/2018 08:16:11
--- NOTE | 2018-07-28 08:27 | P.PNCA ---
Subjective Interval history: Feels okay. Medications and Allergies Active Medications: Active Medications Acetaminophen (Tylenol) 650 mg PO Q4H PRN PRN Reason: Temp > 100.4 Al Hydroxide/Mg Hydroxide (Milk Of Magnesia Liq) 30 ml PO Q12H PRN PRN Reason: Mild Constipation Apixaban (Eliquis) 5 mg PO BID [facility] Last Admin: 07/27/18 21:56 Dose: 5 mg Atorvastatin Calcium (Lipitor) 20 mg PO DAILY@1800 [facility] Last Admin: 07/26/18 18:00 Dose: 20 mg Bisacodyl (Dulcolax Supp) 10 mg RECTAL DAILY PRN PRN Reason: SEVERE CONSITIPATION Diltiazem HCl (Cardizem) 60 mg PO QID [facility] Last Admin: 07/27/18 21:56 Dose: 60 mg Doxazosin Mesylate (Cardura) 4 mg PO DAILY [facility] Last Admin: 07/27/18 08:28 Dose: 4 mg Enalaprilat (Vasotec Inj) 2.5 mg IV.PUSH Q6H PRN PRN Reason: SBP>160, DBP>90 Last Admin: 07/26/18 05:33 Dose: 2.5 mg Sodium Chloride (Ns Inj) 500 mls @ 30 mls/hr IV.SIG .Q10H [facility] Last Admin: 07/26/18 11:12 Dose: Not Given Diltiazem HCl 125 mg/ Sodium (Chloride) 125 mls @ 5 mls/hr IV.CONT TITRATE PRN ; Protocol PRN Reason: Per Protocol Last Admin: 07/27/18 10:48 Dose: 15 mg/hr, 15 mls/hr Lactulose (Lactulose Liq) 30 ml PO DAILY PRN PRN Reason: SEVERE CONSITIPATION Levothyroxine Sodium (Synthroid) 50 mcg PO DAILY@0600 [facility] Last Admin: 07/28/18 06:25 Dose: 50 mcg Losartan Potassium (Cozaar) 100 mg PO DAILY [facility] Last Admin: 07/27/18 08:28 Dose: 100 mg Melatonin (Melatonin) 10 mg PO HS PRN PRN Reason: INSOMNIA Ondansetron HCl (Zofran Inj) 4 mg IV.PUSH Q4H PRN PRN Reason: NAUSEA Oxycodone/Acetaminophen (Percocet 5/325 Mg) 1 tab PO Q4H PRN PRN Reason: PAIN SCALE 1 TO 4 Senna/Docusate Sodium (Karolina-Colace) 1 tab PO BID [facility] Last Admin: 07/27/18 21:57 Dose: 1 tab Sennosides (Senokot) 17.2 mg PO Q12H PRN PRN Reason: Moderate Constipation Sodium Chloride (Ns Flush) 2 ml IV.FLUSH BID [facility] Last Admin: 07/27/18 21:57 Dose: 2 ml Sodium Chloride (Ns Flush) 2 ml IV.FLUSH PRN PRN PRN Reason: FLUSH AFTER USING IV ACCESS Allergies Allergy/AdvReac Type Severity Reaction Status Date / Time Sulfa (Sulfonamide AdvReac Severe subconjuntival Unverified 03/26/17 10:01 Antibiotics) bleed Home Medications Medication Instructions Recorded Confirmed Type apixaban [Eliquis] 5 mg PO BID 07/25/18 07/25/18 History atorvastatin [Lipitor] 20 mg PO QPM 07/25/18 07/25/18 History clonidine HCl 0.1 mg PO TID 07/25/18 07/25/18 History diltiazem HCl [Cartia XT] 240 mg PO DAILY 07/25/18 07/25/18 History doxazosin [Cardura] 4 mg PO DAILY 07/25/18 07/25/18 History hydrochlorothiazide 12.5 mg PO DAILY 07/25/18 07/25/18 History levothyroxine [Levoxyl] 50 mcg PO DAILY 07/25/18 07/25/18 History losartan 100 mg PO DAILY 07/25/18 07/25/18 History metoprolol tartrate 50 mg PO BID 07/25/18 07/25/18 History Physical Exam Vital signs: Vital Signs 07/27/18 10:40 07/27/18 12:00 07/27/18 16:12 Temperature 97.9 F Pulse Rate 88 159 H Respiratory Rate 19 Blood Pressure 173/88 H Pulse Oximetry 96 96 07/27/18 16:20 07/27/18 19:40 07/27/18 20:00 Temperature 97.7 F Pulse Rate 82 103 H 96 H Respiratory Rate 18 16 18 Blood Pressure 148/80 H 122/70 122/70 Pulse Oximetry 95 95 95 07/27/18 23:00 07/28/18 00:00 07/28/18 03:00 Temperature Pulse Rate 100 H 98 H 104 H Respiratory Rate 16 Blood Pressure Pulse Oximetry 07/28/18 04:00 Temperature Pulse Rate 93 H Respiratory Rate 16 Blood Pressure 107/71 Pulse Oximetry 98 Intake & Output 07/27/18 07/28/18 07/28/18 18:59 06:59 18:59 Intake Total 125 / 125 Balance 125 / 125 Weight 168 lb 3.403 oz Intake: IV 125 / 125 Cardizem Inj 125 MG In NS Inj 125 / 125 100 ML @ 5 MG/HR 5 mls/hr IV. CONT TITRATE PRN Rx#:[id number] Other: Date of Last Bowel Movement 07/25/18 Narrative: GENERAL: Well-developed, well-nourished, NAD. SKIN: Warm and dry. Groin site soft without bruising or bleeding. HEAD: Normocephalic. EYES: No scleral icterus. No injection or drainage. NECK: Supple, trachea midline. No JVD or lymphadenopathy. CARDIOVASCULAR: Regular rhythm, tachycardic rate without murmurs, gallops, or rubs. RESPIRATORY: Breath sounds equal bilaterally. No accessory muscle use. GASTROINTESTINAL: Abdomen soft, non-tender, nondistended. MUSCULOSKELETAL: No cyanosis, or edema. BACK: Nontender without obvious deformity. No CVA tenderness. Results 07/28/18 05:42 07/28/18 05:42 Cardiac Enzymes 07/26/18 Range/Units 07:26 AST 24 (15-37) U/L Coagulation 07/28/18 Range/Units 05:42 PT 11.5 (9.8-11.6) sec APTT 30.5 (23.4-31.7) sec CBC 07/28/18 Range/Units 05:42 WBC 6.3 (4.0-11.0) th/mm3 RBC 4.88 (4.50-5.90) mil/mm3 Hgb 15.8 (13.0-17.0) gm/dL Hct 46.0 (39.0-51.0) % Plt Count 180 (150-450) th/mm3 Comprehensive Metabolic Panel 07/26/18 07/27/18 07/28/18 Range/Units 07:26 05:57 05:42 Sodium 133 L 135 L 138 (136-145) meq/L Potassium 3.6 3.7 4.6 D (3.5-5.1) meq/L Chloride 98 102 106 (98-107) meq/L Carbon Dioxide 27.5 24.6 24.6 (21.0-32.0) meq/L BUN 9 14 11 (7-18) mg/dL Creatinine 0.71 0.85 0.85 (0.60-1.30) mg/dL Calcium 8.8 8.7 8.4 L (8.5-10.1) mg/dL AST 24 (15-37) U/L ALT 39 (12-78) U/L Alkaline Phosphatase 87 (45-117) U/L Total Protein 7.0 (6.4-8.2) g/dL Albumin 3.5 (3.4-5.0) g/dL Intake and Output 07/27/18 07/28/18 07/28/18 22:59 06:59 14:59 Other: Weight 168 lb 3.403 oz Assessment and Plan - Assessment (1) Arrhythmia Code(s): I49.9 - Cardiac arrhythmia, unspecified Status: Acute Plan: Tachycardic s/p ablation, ?atrial flutter. Will order repeat EKG. D/W Dr. Acosta. Hold discharge until he evaluates, per that conversation.
[2018-07-28] MEDS: Senna/Docusate Sodium 8.6/50 MG Tablet PO SCH ×2 (10:18→22:13)
[2018-07-28] MEDS: Doxazosin 4 MG Tablet PO SCH (10:18)
[2018-07-28] MEDS: dilTIAZem 60 MG Tablet PO SCH ×4 (10:19→17:55)
[2018-07-28] MEDS ORDERED: AMIODARONE IV.SIG ONE ×2 (12:00)
[2018-07-28] MEDS ORDERED: WATER IV.SIG ONE ×2 (12:00)
[2018-07-28] MEDS ORDERED: DEXTROSE 5% IV.SIG ONE ×2 (12:00)
[2018-07-28] MEDS ORDERED: Heparin/NS PF Inj 1,500 ML ONE (16:10)
[2018-07-28] MEDS ORDERED: Levofloxacin 500 mg Premix Inj 500 MG/100 ML PIGGYBACK IV.SIG ONE (16:10)
[2018-07-28] MEDS ORDERED: Heparin Drip 25,000 UNIT/250 ML BAG IV.CONT ONE (16:52)
[2018-07-28] MEDS ORDERED: Heparin 10,000 UNITS/10 ML Vial (for IV use) ONE ×2 (16:53→18:18)
[2018-07-28] MEDS ORDERED: Isoproterenol HCl Inj 0.2 MG/ML Ampul ONE (16:55)
[2018-07-28] MEDS ORDERED: Protamine Sulfate Inj 50 MG/5 ML Vial ONE (18:18)
--- NOTE | 2018-07-28 18:21 | P.PNIM ---
Subjective Interval history: The patient is a very pleasant 73-year-old male in bed appears in not acute distress at this time. He is however noted with a persistent tachycardia after the ablation. The patient is started on amiodarone drip. Patient denies any chest pain no shortness of breath he does not feel the palpitations. Feels weak. No nausea or vomiting. Able to eat. Family very supportive at bedside. Physical Exam Vital signs: Vital Signs 07/27/18 19:40 07/27/18 20:00 07/27/18 23:00 Temperature Pulse Rate 103 H 96 H 100 H Respiratory Rate 16 18 Blood Pressure 122/70 122/70 Pulse Oximetry 95 95 07/28/18 00:00 07/28/18 03:00 07/28/18 04:00 Temperature Pulse Rate 98 H 104 H 93 H Respiratory Rate 16 16 Blood Pressure 107/71 Pulse Oximetry 98 07/28/18 07:00 07/28/18 08:00 07/28/18 09:00 Temperature 98.3 F Pulse Rate 108 H 116 H 112 H Respiratory Rate 20 Blood Pressure 164/77 H Pulse Oximetry 96 07/28/18 10:00 07/28/18 11:00 07/28/18 12:00 Temperature 98.3 F Pulse Rate 112 H 112 H 110 H Respiratory Rate 20 Blood Pressure 159/90 H Pulse Oximetry 97 07/28/18 13:00 07/28/18 14:00 07/28/18 15:00 Temperature Pulse Rate 110 H 108 H 122 H Respiratory Rate Blood Pressure Pulse Oximetry 07/28/18 16:00 07/28/18 16:01 Temperature 98 F Pulse Rate 100 H 110 H Respiratory Rate 20 Blood Pressure 141/74 H Pulse Oximetry 96 Intake & Output 07/27/18 07/28/18 07/28/18 18:59 06:59 18:59 Intake Total 125 / 125 103 / 103 Balance 125 / 125 103 / 103 Weight 76.3 kg Intake: IV 125 / 125 103 / 103 Cardizem Inj 125 MG In NS Inj 125 / 125 100 ML @ 5 MG/HR 5 mls/hr IV. CONT TITRATE PRN Rx#:[id number] Cordarone Inj 300 MG In D5W Inj 103 / 103 97 ML @ 100 mls/hr IV.SIG ONCE ONE Rx#:[id number] Other: Date of Last Bowel Movement 07/25/18 07/25/18 Narrative: Gen: The patient is a very pleasant 73-year-old male sitting up in bed, appears in not acute distress ENT: Mucous membranes with slightly decreased moisture but not dry Resp: No dyspnea. CTAB. No crackles/wheezes. CV: Tachycardic regular rhythm. Normal S1/S2. No MRG. Abd: Soft, nontender, nondistended. +[id number] MSK: No cyanosis or edema. Neuro: Awake and alert. Moves all extremities, no focal deficit. Results Labs CBC & Chem 7: 07/28/18 05:42 07/28/18 05:42 Assessment and Plan (1) Arrhythmia: Code(s): I49.9 - Cardiac arrhythmia, unspecified Status: Acute Plan 73 yo male with past medical history significant for prostate cancer, currently on radiation therapy, angina, hyperlipidemia, hypertension, type 2 diabetes, asthma, coronary artery disease, paroxysmal A. fib, hypothyroidism presented to ED sent by his cardiology Dr Torres for poss ablation with Dr Acosta for Afib. Patient is afiv with avr at times. He is noted with Afib with slow VR with a HR in 30s Afib and Aflutter. Patient is tachycardic after ablation done on 07/27 Hyponatremia HTN HLD. DM2, diet controlled Hypothyroidism Prostate CA undergoing chemo trop neg , ekg reviewed. Sent By Dr Muñiz for ablation by Dr Acosta. S/P ablation by Dr Acosta on 07/27 Patient is noted tachycardic status post ablation, questionable atrial flutter. Repeat EKG. Dr. Acosta will come and evaluate. Patient is started on amiodarone drip per cardiology Dr. Acosta recommendations. Continue home meds as appropriate. Continue eliquis per Dr Muñiz DVT ppx eliquis Discussed with the patient, family very supportive of bedside, nurse Discharge plan discharge held to: Persistent tachycardia after ablation. Patient is started on IV amiodarone drip. Discharge when improved and cleared by cardiology Progress Note: Quality VTE Deep Vein Thrombosis/Pulmonary Embolism Present on Admission: No _ (1) Arrhythmia Qualifiers: Arrhythmia type: Atrial fibrillation type: Atrial flutter type: Premature depolarization type:
[2018-07-28] MEDS ORDERED: fentaNYL Citrate Inj 100 MCG/2 ML Ampul ONE (18:38)
--- NOTE | 2018-07-28 18:57 | CATHPROC ---
Patient Name: Levi Beltran Study #: [id number] Initial MD: Mauricio Acosta Date of : 1945 Study Date: 07/28/2018 Cardiac Catheterization Report 07/28/2018 6:56:57 PM Financial #: [id number] 1 of 11 Patient Name: Levi Beltran Study #: [id number] Initial MD: Mauricio Acosta Date of : 1945 Study Date: 07/28/2018 Entire Case Report Patient Information Patient Name Levi Beltran Date of 1945 Age 73 years Financial # [id number] Gender M AlternateID Lab Number 2 Room Number 255 Height (in) 66.0 Height (cm) 167.6 BSA 1.86 Weight (lbs) 167.9 Weight (kg) 76.3 Patient Address/Phone Number Home Address [facility] Home Phone Number [address] [facility] [address] Study Information Study Number Admission Scheduled Start Study Start [id number] Jul 25 2018 1:31PM 07/28/2018 Jul 28 2018 4:53PM [employer] [facility] Cath Endovascular Study Admit Source Facility Department Other [facility] - Core Stripper Physician and Clinical Staff Initial Mauricio Ramos Nurse Practitioner Lolis Kenny,RT(R) TECH2 Other Anesthesia, OVEREDGER Recorder Jeanette Escobar RN Recorder Maria Del Rosario Blackmon,Maria Del Rosario Stacy RN,JIMMY Scrub Malena Briones RCIS Procedures Performed Procedure Location (Site) Vessel Name Ablation Procedure ICE CATHETER INSERT RA Atruim Equipment Time Furnace Combination Analyst Description Size Mfg Part Number Used/Scraped NEEDLE, TRANSSEPTAL NR 98 [id number] 16:57 [facility] Used C1 *[id number] [employer]/ EP [id number] 16:57 KIT, TRANSDUCER / AFIB Used PACER *[id number] 07/28/2018 6:56:57 PM Financial #: [id number] 2 of 11 Patient Name: Levi Beltran Study #: [id number] Initial MD: Mauricio Acosta Date of : 1945 Study Date: 07/28/2018 [id number]- CATHETER, TACTICATH ABLAT BUNDLE 16:57 BUNDLE-ST. JC Used 65 BUNDLE *[id number]- BUNDLE [id number] CATHETER, FR7 OPTIMA SPIRAL 16:57 BUNDLE-[facility]. JC FR7 *[id number]- Used BUNDLE BUNDLE [id number] 16:57 BUNDLE-[employer]. JC CATHETER, JSN, QUAD BUNDLE FR 5 *[id number]- Used BUNDLE [id number] 16:57 BUNDLE-[employer]. JC CATHETER, JSN, QUAD BUNDLE FR 5 *[id number]- Used BUNDLE [id number] SET, COOL [place]INT TUBING 16:57 BUNDLE-ST. JC *[id number]- Used BUNDLE BUNDLE SHEATH, FR8.5 STEERABLE SM 16:57 BUNDLE-ST. JC 71CM [id number] Used 71CM BUNDLE [id number] 18:27 [employer] VASCADE, FR5 CLOSURE SYSTEM FR 5 Used *[id number] 18:27 [employer] VASCADE, FR6 CLOSURE SYSTEM FR 6\\7 Used *[id number] 18:27 C[employer] VASCADE, FR6 CLOSURE SYSTEM FR 6\\7 Used *[id number] 18:27 C[employer] MEDICAL VASCADE, FR6 CLOSURE SYSTEM FR 6\\7 Used *[id number] 18:38 C[employer] MEDICAL VASCADE, FR6 CLOSURE SYSTEM FR 6\\7 Used *[id number] COVER, TRANSDUCER CABLE [id number] 16:57 [employer] Used ACUNAV *[id number] 16:57 CORDIS/PACER SHEATH, FR10 POOJA 11CM FR 10 Used *[id number] 16:57 CORDIS/PACER SHEATH, FR9 POOJA 11CM FR 9 [id number] Used [id number] 16:57 [employer] BLANKET,WARM AIR CCL * Used *[id number] 16:57 [employer] PACK, CCL CUSTOM * Used *[id number] CATHETER, ACUNAV FR10 ICE [id number] 17:35 MEDLINE PACER FR 10 Used (ABRIL) *[id number] 16:57 MEDLINE PACER ALEXANDRA, LIMB * 2530 *[id number] Used 16:57 [facility] MEDICAL SHEATH, FR5.5 PRELUDE 11CM FR 5 [id number] Used [id number] 16:57 NAMIC TUBING, HIGH PRESSURE 48" 48" Used *[id number] 16:57 NAMIC TUBING, HIGH PRESSURE 48" 48" Used *3913880 [id number] 16:57 [facility] MEDICAL ELECTRODE KIT, TINA X SURFACE * Used *0719206 [id number] 16:57 [facility] MEDICAL SHEATH, EPS, FR6 FAST CATH FR 6 Used *9657817 16:57 [facility] MEDICAL SHEATH, EPS, FR7 FAST CATH FR 7 [id number] Used 261516 16:57 [facility] MEDICAL SHEATH, EPS, FR8 FAST CATH FR 8 Used *[id number] [facility] PAD, ELECTROSURGICAL 16:57 * [id number] *[id number] Used SURGICAL GROUNDING (BLUE) 07/28/2018 6:56:57 PM Financial #: [id number] Patient Name: eLvi Beltran Study #: [id number] Initial MD: Mauricio Acosta Date of : 1945 Study Date: 9 Insurance Information Insurance Payor Medicare Third Republican Third Republican Number MEDICARE A B MCRAB History: Allergies Allergy Reaction Sulfa (Sulfonamide Antibiotics) subconjuntival bleed History: Risk Factors Family History of Hypertension Dyslipidemia Previous OH Previous Heart Failure Premature CAD Yes Yes Yes No No Prior Valve Prior PCI Prior CABG Surgery No No No Cerebrovascular Peripheral Artery Chronic Lung On Dialysis Diabetes Diabetes Therapy Disease Disease Disease No No No Yes Yes Diet Labs Hgb (g/dl) Hct (%) RBC (MIL/MM3) WBC (l/cumm) Platelets (thousands) 11.60-17.00 35.00-51.00 4.00-5.90 4.00-11.00 150.00-450.00 15.0 46 4.8 6.3 180 Glucose (mg/dl) BUN (mg/dl) Creatinine (mg/dl) BUN:Creatinine (1:x) 74.00-106.00 7.00-18.00 0.50-1.30 10.00-20.00 146 11 0.9 12.2 Na (meq/l) K (meq/l) 136.00-145.00 3.50-5.10 138 4.6 INR (PTT:PT) 0.90-1.10 1.1 Medication 07/28/2018 6:56:57 PM Financial #: [id number] Patient Name: Levi Beltran Study #: [id number] Initial MD: Mauricio Acosta Date of : 1945 Study Date: 07/29/19 19 Medication Total Dose (Bolus/Oral) Medication Total Dosage/Unit 1% XYLOCAINE 40 mL HEPARIN 30877 units PROTAMINE 40 mg Medications (Bolus/Oral) Medication Time Given Dosage/Unit Administered By Reason 1% XYLOCAINE 07/28/2018 5:32:54 PM 20 mL Mauricio Acosta 20 mL 1% XYLOCAINE given in lab by Mauricio Acosta in Left Groin via Subcutaneous. 1% XYLOCAINE 07/28/2018 5:37:33 PM 20 mL Mauricio Acosta 20 mL 1% XYLOCAINE given in lab by Mauricio Acosta in Right Groin via Subcutaneous. HEPARIN 07/28/2018 5:45:54 PM 8000 units Anesthesia, OVEREDGER As per physicians verbal order 8000 units HEPARIN given in lab by Anesthesia, OVEREDGER via Peripheral IV. Ordered by Mauricio Acosta. Reas on: As per physicians verbal order. HEPARIN 07/28/2018 6:15:57 PM 2000 units Anesthesia, OVEREDGER As per physicians verbal order 2000 units HEPARIN given in lab by Anesthesia, OVEREDGER via Peripheral IV. Ordered by Mauricio Acosta. Reas on: As per physicians verbal order. PROTAMINE 07/28/2018 6:35:14 PM 40 mg Anesthesia, OVEREDGER As per physicians v erbal order 40 mg PROTAMINE given in lab by Anesthesia, OVEREDGER via Peripheral IV. Ordered by Mauricio Acosta. Reason: As per physicians verbal order. Medication (Drip) Medication Time Given Dosage/Unit Concentration/Unit Diluent (ml) Solution Amiodarone Drip 07/28/2018 4:57:44 PM 1 mg/min 450 mg 250 D5W Patient arrived on 1 mg/min Amiodarone Drip in Right Antecubital via Peripheral IV. Pump/Drip Flow = 33.33 ml/hr using D5W with a concentration of 450 mg in 250 ml. AMIODARONE DRIP 07/28/2018 5:18:30 PM 0 units/hr 0 STOPPED 0 units/hr AMIODARONE DRIP STOPPED given by Anesthesia, OVEREDGER. Pump/Drip Flow = 0 ml/hr using [Solutio n Name]. Ordered by Mauricio Acosta. Discontinued at 07/28/2018 17:20. HEPARIN DRIP 07/28/2018 5:58:12 PM 1000 units/hr 16736 units 250 D5W 1000 units/hr HEPARIN DRIP given in lab by Anesthesia, OVEREDGER via Peripheral IV. Pump/Drip Flow = 10 ml /hr [place] [address] units in 250 ml. Ordered by Mauricio Acosta. Reason: As per physicians verbal order. ISUPREL 07/28/2018 6:21:09 PM 20 mcg/min 1 mg 250 NaCl .9 20 mcg/min ISUPREL given in lab by Anesthesia, OVEREDGER via Peripheral IV. Pump/Drip Flow = 300 ml/hr usi ng NaCl .9 with a concentration of 1 mg in 250 ml. Ordered by Mauricio Acosta. Reason: As per physicians verbal order. IV Solutions 07/28/2018 4:59:45 PM 0 mL (IV) NaCl .9 IV Solutions given in lab by Maria Del Rosario Blackmon RN in Left Wrist via Peripheral IV. Pump/Drip Flow = 20 ml/hr using NaCl .9. Ordered by Mauricio Acosta. Reason: As per physicians verbal order. LEVAQUIN 07/28/2018 5:17:26 PM 500 mL/hr 500 100 NaCl .9 500 mL/hr LEVAQUIN given in lab by Anesthesia, OVEREDGER via Peripheral IV. Pump/Drip Flow = 100 ml/hr usi ng NaCl .9 with a concentration of 500 in 100 ml. Ordered by Mauricio Acosta. Reason: As per physicians verbal order. For gregory insertion. 07/28/2018 6:56:57 PM Financial #: [id number] Patient Name: Levi Beltran Study #: [id number] Initial MD: Mauricio Acosta Date of : 1945 Study Date: 07/28/2018 Initial Case Assessment Cardiovascular HR Rhythm NIBP 96 AFIB 153/81 Edema Present Skin color Skin None Normal Warm Dry Circulatory - Right Pulses Dorsalis Pedis 1 Scale (0,1,2,3,4,d) Circulatory - Left Pulses Dorsalis Pedis 1 Scale (0,1,2,3,4,d) Circulatory - Lower Extremities Color Lower Right Color Lower Left Normal Normal Neurological State Oriented to time-place- Alert Moves all extremities person Respiration - General Respiration Rate SpO2 (%) (B/min) 20 96 07/28/2018 6:56:57 PM Financial #: [id number] Patient Name: Levi Beltran Study #: [id number] Initial MD: Mauricio Acosta Date of : 1945 Study Date: 07/28/2018 Final Case Assessment Cardiovascular HR Rhythm NIBP Chest Pain 99 sr 83/52 0 Edema Present Skin color Skin None Normal Warm Dry Circulatory - Right Pulses Dorsalis Pedis 1 Scale (0,1,2,3,4,d) Circulatory - Left Pulses Dorsalis Pedis 1 Scale (0,1,2,3,4,d) Circulatory - Lower Extremities Color Lower Right Color Lower Left Normal Normal Neurological State Unresponsive Comment: under anesthesia Respiration - General Respiration Rate SpO2 (%) (B/min) 16 95 Comment: under anesthesia Respiration - Ventilator Type Intubation Type ET(oral) Chronological Log Time Study Chronological Log 16:53:28 Patient arrived via Bed. 16:53:29 Patient Name, D.O.B, / Armband Verified By R.N. 16:53:30 Consent signed by the physician and the patient and verified by the Core Stripper staff. 16:53:31 Pre-op and post- op instructions given; patient acknowledges understanding of instructions. 16:53:32 Verbal Stimulation=2 Physical Stimulation=2 Airway=2 Respiration=2 TOTAL=8. (0=absent, 1=li mited, 2=present) 07/28/2018 6:56:57 PM Financial #: [id number] Patient Name: Levi Beltran Study #: [id number] Initial MD: Mauricio Acosta Date of : 1945 Study Date: 07/28/2018 Anesthesia at bedside. Assumes care of patient. Please see anesthesia record for all vital sign s and medications 16:53:33 administered by anesthesia. Jerome 16:53:35 Patient has been NPO for More than 6Hrs. 16:53:36 Skin Breakdown- none per pt 16:54:38 Disposable Defibrillator Pads Placed On Patient. 16:54:38 Traci Prominences Protected 16:55:36 Patient Warmer Placed on the Table. 16:57:41 A # 20 IV was noted in the Antecubital (right). Grade = 0 16:57:42 A # 20 IV was noted in the Wrist LT. Grade = 0 16:57:43 History and physical on the chart. Patient arrived on 1 mg/min Amiodarone Drip in Right Antecubital via Peripheral IV. Pump/Drip F low = 33.33 ml/hr 16:57:44 using D5W with a concentration of 450 mg in 250 ml. IV Solutions given in lab by Maria Del Rosario Blackmon RN in Left Wrist via Peripheral IV. Pump/Drip Willy w = 20 ml/hr using NaCl 16:59:45 .9. Ordered by Mauricio Acosta. Reason: As per physicians verbal order. Assessment: Initial Case, HR=96 BPM, Rhythm=AFIB, PRJB=252/81 mmhg, Edema=None, Color=Normal, S kin = Warm, Dry Right Pulses: Shon Ped=1 Left Pulses: Shon Ped=1 17:00:25 Lower Right Extremities: Color=Normal Lower Left Extremities: Color=Normal Neurological: State=Alert, Ox3, DUGGAN Respiration: Resp=20 B/min, SpO2=96 % 17:08:34 Table restraints applied according to hospital policy 17:09:54 A 14fr gregory catheter was inserted using aseptic technique, secured to leg with clear, yell ow urine draining freely-MM 17:10:40 Anesthesiologist present for intubation-Dr. Aguilar. 500 mL/hr LEVAQUIN given in lab by KWAKU Peryr via Peripheral IV. Pump/Drip Flow = 100 ml/ hr using NaCl .9 17:17:26 with a concentration of 500 in 100 ml. Ordered by Mauricio Acosta. Reason: As per physicians verbal order. For gregory insertion. 0 units/hr AMIODARONE DRIP STOPPED given by AnesthesiaKWAKU. Pump/Drip Flow = 0 ml/hr using [S olution Name]. 17:18:30 Ordered by Mauricio Acosta. Discontinued at 07/28/2018 17:20. 17:23:23 MD paged ready 17:23:58 Reference ECG taken 17:25:08 MD arrived. Time Out. Correct patient, procedure, procedure equipment, site and side verified with physicia n present. Time 17:28:31 concurred by MD, individual staff and OVEREDGER. Time Out #2 - Consents verified, patient in correct position, all results are labled and displa yed, safety precautions 17:29:00 taken, antibiotics administered. Time out concurred by MD, individual staff and OVEREDGER in procedu re 17:29:00 Case Start 17:29:29 ASHER in progress. 17:32:12 ASHER complete. 17:32:54 20 mL 1% XYLOCAINE given in lab by Mauricio Acosta in Left Groin via Subcutaneous. 17:33:35 Vascular access was obtained in the Fem Vein (left). 17:33:39 Vascular access was obtained in the Fem Vein (left). 17:33:40 Vascular access was obtained in the Fem Vein (left). 17:33:42 Vascular access was obtained in the Fem Art (left). 07/28/2018 6:56:57 PM Financial #: [id number] Patient Name: Levi Beltran Study #: [id number] Initial MD: Mauricio Acosta Date of : 1945 Study Date: 07/28/2018 A SHEATH, FR5.5 PRELUDE 11CM FR 5 was advanced into the Fem Art (left) using the Modified Seldi nger technique. 17:33:56 0.9ns pressure bag connected 17:34:20 A SHEATH, EPS, FR6 FAST CATH FR 6 was advanced into the Fem Vein (left) using the Modified Seldinger technique. 17:35:25 A SHEATH, EPS, FR7 FAST CATH FR 7 was advanced into the Fem Vein (left) using the Modified Seldinger technique. 17:36:28 A SHEATH, FR10 POOJA 11CM FR 10 was advanced into the Fem Vein (left) using the Modified S eldinger technique. 17:37:33 20 mL 1% XYLOCAINE given in lab by Mauricio Acosta in Right Groin via Subcutaneous. 17:37:40 Vascular access was obtained in the Fem Vein (right). 17:38:40 An esophageal temp probe was inserted x 2 by anesthesia per MD order. 17:39:26 A SHEATH, EPS, FR8 FAST CATH FR 8 was advanced into the Fem Vein (right) using the Modified Seldinger technique. A CATHETER, JSN, QUAD BUNDLE FR 5 was advanced vis Fem Vein (left) and placed in the CS. Placem ent was visually 17:39:32 confirmed under fluoroscopy. A CATHETER, JSN, QUAD BUNDLE FR 5 was advanced vis Fem Vein (left) and placed in the HIS. Place ment was 17:39:44 visually confirmed under fluoroscopy. 17:40:15 CATHETER, ACUNAV FR10 ICE ([employer]) FR 10 Was Postioned. A SHEATH, FR8.5 STEERABLE SM 71CM BUNDLE 71CM was exchanged in the Fem Vein (right). This was n ecessary in 17:44:33 order for catheter support. 17:45:53 Watrous needle in. 8000 units HEPARIN given in lab by Anesthesia, OVEREDGER via Peripheral IV. Ordered by Mauricio Acosta . Reason: As per 17:45:54 physicians verbal order. 17:48:27 A eps was advanced to the right atrium and passed through the septal wall to the left atriu m. 17:48:35 Watrous needle out. A CATHETER, FR7 OPTIMA SPIRAL BUNDLE FR7 was advanced vis Fem Vein (right) and placed in the LA . Placement 17:51:15 was visually confirmed under fluoroscopy. 17:51:42 Mapping in progress. 17:52:14 Activated Clotting Time Drawn 17:58:04 ACT (Normal Range 90-180) = 279 1000 units/hr HEPARIN DRIP given in lab by Anesthesia, OVEREDGER via Peripheral IV. Pump/Drip Flow = 10 ml/hr using 17:58:12 D5[place] [address] units in 250 ml. Ordered by Mauricio Acosta. Reason: As per anahy holm verbal order. 18:01:10 Mapping complete. 18:01:40 Catheter was removed (mapping/spiral) A CATHETER, TACTICATH ABLAT 65 BUNDLE was advanced vis Fem Vein (right) and placed in the LA. P lacement was 18:03:27 visually confirmed under fluoroscopy. 18:04:52 Ablation in progress. 18:11:06 Activated Clotting Time Drawn 18:15:45 BL out 18:15:51 ACT (Normal Range 90-180) = 241 2000 units HEPARIN given in lab by Anesthesia, OVEREDGER via Peripheral IV. Ordered by Mauricio Acosta . Reason: As per 18:15:57 physicians verbal order. 20 mcg/min ISUPREL given in lab by Anesthesia, OVEREDGER via Peripheral IV. Pump/Drip Flow = 300 ml/ hr using NaCl .9 18:21:09 with a concentration of 1 mg in 250 ml. Ordered by Mauricio Acosta. Reason: As per physicians mono bal order. 18:29:50 Ablation procedure performed: AFIB. 18:29:56 EP Procedure was performed. 18:30:38 ACT (Normal Range 90-180) = 294 07/28/2018 6:56:57 PM Financial #: [id number] Patient Name: Levi Beltran Study #: [id number] Initial MD: Mauricio Acosta Date of : 1945 Study Date: 07/28/2018 18:32:18 Isuprel off 18:32:49 All catheter(s) removed without difficulty A SHEATH, FR9 POOJA 11CM FR 9 was exchanged in the Fem Vein (right). This was necessary in or citlali to minimize 18:33:14 site leakage. 18:34:32 Heparin off 18:34:57 Sheaths to be removed using closure device; pressure applied to access sites. 40 mg PROTAMINE given in lab by Anesthesia, OVEREDGER via Peripheral IV. Ordered by Mauricio Acosta. Reason: As per 18:35:14 physicians verbal order. 18:37:07 VASCADE, FR5 CLOSURE SYSTEM FR 5 placement in the Fem Art (left) 18:37:16 VASCADE, FR6 CLOSURE SYSTEM FR 6\\7 placement in the Fem Vein (left) 18:37:22 VASCADE, FR6 CLOSURE SYSTEM FR 6\\7 placement in the Fem Vein (left) 18:37:32 VASCADE, FR6 CLOSURE SYSTEM FR 6\\7 placement in the Fem Vein (left) 18:38:39 VASCADE, FR6 CLOSURE SYSTEM FR 6\\7 placement in the Fem Vein (right) 18:46:45 Activated Clotting Time Drawn 18:50:11 ACT (Normal Range 90-180) = 135 18:50:30 Case End (Physician broke scrub) 18:50:42 No case complications noted. 18:50:51 Cine recording checked. Assessment: Final Case, HR=99 BPM, Rhythm=sr, NIBP=83/52 mmhg, Chest Pain=0, Edema=None, Color =Normal, Skin = Warm, Dry Right Pulses: Shon Ped=1 Left Pulses: Shon Ped=1 18:55:31 Lower Right Extremities: Color=Normal Lower Left Extremities: Color=Normal Neurological: State=Unresponsive, Comment=under anesthesia Respiration: Resp=16 B/min, SpO2=95 %, Type=ET(Oral), Comment=under anesthesia 18:58:22 Sterile dressing applied to sites. Sites wnl. 19:00:16 Patient moved to stretcher End Study - Contrast Media Used In Study Contrast Total Opened (mL) Total Used (mL) Total Wasted (mL) Unspecified 0 0 0 End Study - Maximum Contrast Load Max Contrast Load (mL) 424.0 07/28/2018 6:56:57 PM Financial #: [id number] Patient Name: Levi Beltran Study #: [id number] Initial MD: Mauricio Acosta Date of : 1945 Study Date: 07/28/2018 End Study - Radiation Exposure Fluoro Time Fluoro Dose (mGy) Cine Dose (uGym2) (minutes) 3.4 50 547 End Study - Patient Disposition Complications Transferred To Interventional Outcome No Telemetry Bed successful 07/28/2018 6:56:57 PM Financial #: [id number]
[2018-07-28] MEDS ORDERED: Sugammadex Inj 200 MG/2 ML Vial IV.PUSH ONE (20:08)
[2018-07-28] MEDS: Amiodarone 200 MG Tablet PO SCH (22:04)
[2018-07-29] MEDS: Levothyroxine 50 MCG Tablet PO SCH (05:55)
[2018-07-29 06:19] LABS: Activated Partial Thrombo Time 29.6 sec (23.4-31.7); INR 1.2 Ratio; Prothrombin Time 11.9 sec (9.8-11.6)
[2018-07-29] MEDS: Senna/Docusate Sodium 8.6/50 MG Tablet PO SCH ×2 (09:19→20:17)
[2018-07-29] MEDS: Doxazosin 4 MG Tablet PO SCH (09:19)
[2018-07-29] MEDS: Amiodarone 200 MG Tablet PO SCH ×2 (09:20→20:15)
[2018-07-29] MEDS: Metoprolol Tartrate 25 MG Tablet PO SCH ×2 (11:34→20:15)
--- NOTE | 2018-07-29 15:35 | P.PNIM ---
Subjective Interval history: The patient is in bed he appears to not distress at this time. He denies chest pain or shortness of breath. He feels tired. Will consult PT for evaluation. His blood pressure is also noted elevated and started on metoprolol. Is now ready for discharge today. Physical Exam Vital signs: Vital Signs 07/28/18 16:00 07/28/18 16:01 07/28/18 19:14 Temperature 98 F 97.5 F L Pulse Rate 100 H 110 H 99 H Respiratory Rate 20 18 Blood Pressure 141/74 H 126/74 Pulse Oximetry 96 96 07/28/18 19:15 07/28/18 19:30 07/28/18 19:45 Temperature Pulse Rate 99 H 98 H 97 H Respiratory Rate 20 20 18 Blood Pressure 127/74 134/76 137/77 Pulse Oximetry 97 96 96 07/28/18 20:00 07/28/18 20:15 07/28/18 21:00 Temperature 97.6 F Pulse Rate 95 H 97 H 90 Respiratory Rate 14 18 Blood Pressure 132/77 146/85 H Pulse Oximetry 95 97 07/28/18 21:56 07/28/18 22:00 07/28/18 23:00 Temperature 98 F Pulse Rate 100 H 93 H Respiratory Rate 18 Blood Pressure 138/82 Pulse Oximetry 98 95 07/29/18 00:00 07/29/18 01:00 07/29/18 02:00 Temperature Pulse Rate 88 86 92 H Respiratory Rate Blood Pressure Pulse Oximetry 07/29/18 03:00 07/29/18 04:00 07/29/18 05:00 Temperature Pulse Rate 84 90 88 Respiratory Rate 16 Blood Pressure 126/92 H Pulse Oximetry 97 07/29/18 06:00 07/29/18 07:00 07/29/18 08:00 Temperature 97.8 F Pulse Rate 102 H 93 H 86 Respiratory Rate 18 Blood Pressure 142/76 H Pulse Oximetry 99 07/29/18 09:00 07/29/18 09:44 07/29/18 10:00 Temperature Pulse Rate 92 H 94 H Respiratory Rate Blood Pressure Pulse Oximetry 99 07/29/18 11:00 07/29/18 11:33 07/29/18 12:00 Temperature 98.5 F Pulse Rate 110 H 106 H 90 Respiratory Rate 18 Blood Pressure 182/101 H Pulse Oximetry 98 07/29/18 13:00 07/29/18 13:37 07/29/18 14:00 Temperature Pulse Rate 88 88 86 Respiratory Rate 18 Blood Pressure 145/92 H Pulse Oximetry 98 07/29/18 15:00 07/29/18 15:30 Temperature 98.1 F Pulse Rate 88 89 Respiratory Rate 17 Blood Pressure 164/97 H Pulse Oximetry 97 Intake & Output 07/28/18 07/29/18 07/29/18 18:59 06:59 18:59 Intake Total 343 / 343 1680 / 1680 Output Total 1000 / 1000 Balance 343 / 343 680 / 680 Weight 81.5 kg Intake: IV 103 / 103 Cordarone Inj 300 MG In D5W Inj 103 / 103 97 ML @ 100 mls/hr IV.SIG ONCE ONE Rx#:[id number] Oral 240 / 240 480 / 480 Anesthesia Amount 1200 / 1200 Output: Urine 500 / 500 Urine Amount (Catheter) 500 / 500 Indwelling Urethral Catheter 500 / 500 Other: # Voids 1 Date of Last Bowel Movement 07/25/18 07/27/18 07/28/18 # Bowel Movements 0 Narrative: Gen: The patient is a very pleasant 73-year-old male sitting up in bed, appears in not acute distress ENT: Mucous membranes with slightly decreased moisture but not dry Resp: No dyspnea. CTAB. No crackles/wheezes. CV: Tachycardic regular rhythm. Normal S1/S2. No MRG. Abd: Soft, nontender, nondistended. +[id number] MSK: No cyanosis or edema. Neuro: Awake and alert. Moves all extremities, no focal deficit. Urinary Catheter Management Indwelling Urethral Catheter: Cath placed during this visit: no Results Labs CBC & Chem 7: 07/28/18 05:42 07/28/18 05:42 Assessment and Plan (1) Arrhythmia: Code(s): I49.9 - Cardiac arrhythmia, unspecified Status: Acute Plan 73 yo male with past medical history significant for prostate cancer, currently on radiation therapy, angina, hyperlipidemia, hypertension, type 2 diabetes, asthma, coronary artery disease, paroxysmal A. fib, hypothyroidism presented to ED sent by his cardiology Dr Torres for poss ablation with Dr Acosta for Afib. Patient is afiv with avr at times. He is noted with Afib with slow VR with a HR in 30s Afib and Aflutter. Patient is tachycardic after ablation done on 07/27 Hyponatremia HTN HLD. DM2, diet controlled Hypothyroidism Prostate CA undergoing chemo HTN trop neg , ekg reviewed. Sent By Dr Muñiz for ablation by Dr Acosta. S/P ablation by Dr Acosta on 07/27 Patient is noted tachycardic status post ablation, questionable atrial flutter. Patient is started on amiodarone drip per cardiology Dr. Acosta recommendations. Cureently off drip and on PO amiodarone. However BP is elevated start metoprolol per Dr Alvarez cardio. Will monitor Continue home meds as appropriate. Continue eliquis per Dr Muñiz DVT ppx eliquis Discussed with the patient, family very supportive of bedside, nurse, Dr. Paul cardiology Discharge plan discharge held to: Persistent tachycardia after ablation. Patient is started on IV amiodarone drip, now on O amiodarone, howeber his BP is elevated , started on metoprolol per cardio. hold DC today. Also consult PT for eval. Discharge when improved and cleared by cardiology Progress Note: Quality VTE Deep Vein Thrombosis/Pulmonary Embolism Present on Admission: No _ (1) Arrhythmia Qualifiers: Arrhythmia type: Atrial fibrillation type: Atrial flutter type: Premature depolarization type:
--- NOTE | 2018-07-29 17:51 | P.PNCA ---
Subjective Interval history: Follow up for Dr. Acosta s/p ablation x2 Heart rates mildly elevated this morning Blood pressure elevated Medications and Allergies Active Medications: Active Medications Acetaminophen (Tylenol) 650 mg PO Q4H PRN PRN Reason: Temp > 100.4 Al Hydroxide/Mg Hydroxide (Milk Of Magnesia Liq) 30 ml PO Q12H PRN PRN Reason: Mild Constipation Amiodarone HCl (Cordarone) 400 mg PO BID [facility] Last Admin: 07/29/18 09:20 Dose: 400 mg Apixaban (Eliquis) 5 mg PO BID [facility] Last Admin: 07/29/18 09:19 Dose: 5 mg Atorvastatin Calcium (Lipitor) 20 mg PO DAILY@1800 [facility] Last Admin: 07/28/18 22:11 Dose: 20 mg Bisacodyl (Dulcolax Supp) 10 mg RECTAL DAILY PRN PRN Reason: SEVERE CONSITIPATION Doxazosin Mesylate (Cardura) 4 mg PO DAILY [facility] Last Admin: 07/29/18 09:19 Dose: 4 mg Enalaprilat (Vasotec Inj) 2.5 mg IV.PUSH Q6H PRN PRN Reason: SBP>160, DBP>90 Last Admin: 07/26/18 05:33 Dose: 2.5 mg Hydrochlorothiazide (Hydrodiuril) 12.5 mg PO DAILY [facility] Sodium Chloride (Ns Inj) 500 mls @ 30 mls/hr IV.SIG .Q10H [facility] Last Admin: 07/26/18 11:12 Dose: Not Given Diltiazem HCl 125 mg/ Sodium (Chloride) 125 mls @ 5 mls/hr IV.CONT TITRATE PRN ; Protocol PRN Reason: Per Protocol Last Admin: 07/27/18 10:48 Dose: 15 mg/hr, 15 mls/hr Lactulose (Lactulose Liq) 30 ml PO DAILY PRN PRN Reason: SEVERE CONSITIPATION Levothyroxine Sodium (Synthroid) 50 mcg PO DAILY@0600 [facility] Last Admin: 07/29/18 05:55 Dose: 50 mcg Losartan Potassium (Cozaar) 100 mg PO DAILY [facility] Last Admin: 07/29/18 09:20 Dose: 100 mg Melatonin (Melatonin) 10 mg PO HS PRN PRN Reason: INSOMNIA Metoprolol Tartrate (Lopressor) 25 mg PO BID [facility] Last Admin: 07/29/18 11:34 Dose: 25 mg Miscellaneous Information ([facility] Nursing Information) 1 each OTHER UNSCH PRN PRN Reason: SEE LABEL COMMENTS Stop: 07/29/18 19:15 Ondansetron HCl (Zofran Inj) 4 mg IV.PUSH Q4H PRN PRN Reason: NAUSEA Oxycodone/Acetaminophen (Percocet 5/325 Mg) 1 tab PO Q4H PRN PRN Reason: PAIN SCALE 1 TO 4 Senna/Docusate Sodium (Karolina-Colace) 1 tab PO BID [facility] Last Admin: 07/29/18 09:19 Dose: Not Given Sennosides (Senokot) 17.2 mg PO Q12H PRN PRN Reason: Moderate Constipation Sodium Chloride (Ns Flush) 2 ml IV.FLUSH BID [facility] Last Admin: 07/29/18 11:26 Dose: 2 ml Sodium Chloride (Ns Flush) 2 ml IV.FLUSH PRN PRN PRN Reason: FLUSH AFTER USING IV ACCESS Allergies Allergy/AdvReac Type Severity Reaction Status Date / Time Sulfa (Sulfonamide AdvReac Severe subconjuntival Verified 07/29/18 05:56 Antibiotics) bleed Home Medications Medication Instructions Recorded Confirmed Type apixaban [Eliquis] 5 mg PO BID 07/25/18 07/25/18 History atorvastatin [Lipitor] 20 mg PO QPM 07/25/18 07/25/18 History clonidine HCl 0.1 mg PO TID 07/25/18 07/25/18 History diltiazem HCl [Cartia XT] 240 mg PO DAILY 07/25/18 07/25/18 History doxazosin [Cardura] 4 mg PO DAILY 07/25/18 07/25/18 History hydrochlorothiazide 12.5 mg PO DAILY 07/25/18 07/25/18 History levothyroxine [Levoxyl] 50 mcg PO DAILY 07/25/18 07/25/18 History losartan 100 mg PO DAILY 07/25/18 07/25/18 History metoprolol tartrate 50 mg PO BID 07/25/18 07/25/18 History Physical Exam Vital signs: Vital Signs 07/28/18 19:14 07/28/18 19:15 07/28/18 19:30 Temperature 97.5 F L Pulse Rate 99 H 99 H 98 H Respiratory Rate 18 20 20 Blood Pressure 126/74 127/74 134/76 Pulse Oximetry 96 97 96 07/28/18 19:45 07/28/18 20:00 07/28/18 20:15 Temperature 97.6 F Pulse Rate 97 H 95 H 97 H Respiratory Rate 18 14 18 Blood Pressure 137/77 132/77 146/85 H Pulse Oximetry 96 95 97 07/28/18 21:00 07/28/18 21:56 07/28/18 22:00 Temperature Pulse Rate 90 100 H Respiratory Rate Blood Pressure Pulse Oximetry 98 07/28/18 23:00 07/29/18 00:00 07/29/18 01:00 Temperature 98 F Pulse Rate 93 H 88 86 Respiratory Rate 18 Blood Pressure 138/82 Pulse Oximetry 95 07/29/18 02:00 07/29/18 03:00 07/29/18 04:00 Temperature Pulse Rate 92 H 84 90 Respiratory Rate 16 Blood Pressure 126/92 H Pulse Oximetry 97 07/29/18 05:00 07/29/18 06:00 07/29/18 07:00 Temperature Pulse Rate 88 102 H 93 H Respiratory Rate Blood Pressure Pulse Oximetry 07/29/18 08:00 07/29/18 09:00 07/29/18 09:44 Temperature 97.8 F Pulse Rate 86 92 H Respiratory Rate 18 Blood Pressure 142/76 H Pulse Oximetry 99 99 07/29/18 10:00 07/29/18 11:00 07/29/18 11:33 Temperature 98.5 F Pulse Rate 94 H 110 H 106 H Respiratory Rate 18 Blood Pressure 182/101 H Pulse Oximetry 98 07/29/18 12:00 07/29/18 13:00 07/29/18 13:37 Temperature Pulse Rate 90 88 88 Respiratory Rate 18 Blood Pressure 145/92 H Pulse Oximetry 98 07/29/18 14:00 07/29/18 15:00 07/29/18 15:30 Temperature 98.1 F Pulse Rate 86 88 89 Respiratory Rate 17 Blood Pressure 164/97 H Pulse Oximetry 97 Intake & Output 07/28/18 07/29/18 07/29/18 18:59 06:59 18:59 Intake Total 343 / 343 1680 / 1680 760 / 760 Output Total 1000 / 1000 Balance 343 / 343 680 / 680 760 / 760 Weight 81.5 kg Intake: IV 103 / 103 Cordarone Inj 300 MG In D5W Inj 103 / 103 97 ML @ 100 mls/hr IV.SIG ONCE ONE Rx#:[id number] Oral 240 / 240 480 / 480 760 / 760 Anesthesia Amount 1200 / 1200 Output: Urine 500 / 500 Urine Amount (Catheter) 500 / 500 Indwelling Urethral Catheter 500 / 500 Other: # Voids 1 3 Date of Last Bowel Movement 07/25/18 07/27/18 07/28/18 # Bowel Movements 0 Narrative: GENERAL: Well-developed, well-nourished, NAD. SKIN: Warm and dry. Groin site soft without bruising or bleeding. HEAD: Normocephalic. EYES: No scleral icterus. No injection or drainage. NECK: Supple, trachea midline. No JVD or lymphadenopathy. CARDIOVASCULAR: Regular rhythm, without murmurs, gallops, or rubs. RESPIRATORY: Breath sounds equal bilaterally. No accessory muscle use. GASTROINTESTINAL: Abdomen soft, non-tender, nondistended. MUSCULOSKELETAL: No cyanosis, or edema. BACK: Nontender without obvious deformity. No CVA tenderness. - Urinary Catheter Management Indwelling Urethral Catheter Cath placed during this visit: no Results 07/28/18 05:42 07/28/18 05:42 Coagulation 07/28/18 07/29/18 Range/Units 05:42 05:48 PT 11.5 11.9 H (9.8-11.6) sec APTT 30.5 29.6 (23.4-31.7) sec CBC 07/28/18 Range/Units 05:42 WBC 6.3 (4.0-11.0) th/mm3 RBC 4.88 (4.50-5.90) mil/mm3 Hgb 15.8 (13.0-17.0) gm/dL Hct 46.0 (39.0-51.0) % Plt Count 180 (150-450) th/mm3 Comprehensive Metabolic Panel 07/28/18 Range/Units 05:42 Sodium 138 (136-145) meq/L Potassium 4.6 D (3.5-5.1) meq/L Chloride 106 (98-107) meq/L Carbon Dioxide 24.6 (21.0-32.0) meq/L BUN 11 (7-18) mg/dL Creatinine 0.85 (0.60-1.30) mg/dL Calcium 8.4 L (8.5-10.1) mg/dL Intake and Output 07/29/18 07/29/18 07/29/18 06:59 14:59 22:59 Intake Total 480 / 480 760 / 760 Output Total 800 / 800 Balance -320 / -320 760 / 760 Intake: Oral 480 / 480 760 / 760 Output: Urine 500 / 500 Urine Amount (Catheter) 300 / 300 Indwelling Urethral Catheter 300 / 300 Other: # Voids 3 Date of Last Bowel Movement 07/27/18 07/28/18 Weight 81.5 kg Assessment and Plan - Assessment (1) Arrhythmia Code(s): I49.9 - Cardiac arrhythmia, unspecified Status: Acute (2) CHF (congestive heart failure) Code(s): I50.9 - Heart failure, unspecified Status: Acute (3) Hyponatremia Code(s): E87.1 - Hypo-osmolality and hyponatremia Status: Acute (4) Atrial fibrillation Code(s): I48.91 - Unspecified atrial fibrillation Status: Acute (5) Atrial fibrillation with RVR Code(s): I48.91 - Unspecified atrial fibrillation Status: Acute (6) Essential hypertension Code(s): I10 - Essential (primary) hypertension Status: Chronic (7) Type 2 diabetes mellitus Code(s): E11.9 - Type 2 diabetes mellitus without complications Status: Chronic - Plan 1) AFib/flutter s/p ablation x2 Started on Amiodarone 400mg BID Continue for 2 weeks Plan for follow up with Dr. Acosta on discharge Yesika 2) Heart rates elevated this morning Started on Metoprolol 25mg BID EKG showing sinus rhythm 3) HTN Multiple changes in medications, never started back on baseline meds, as well as stopping Cardizem Started on Metoprolol Will restart HCTZ 4) Plan to watch overnight, and if stable tomorrow will discharge home (7) Type 2 diabetes mellitus Qualifiers: Diabetes mellitus half-way insulin use: without terminal press operator use Diabetes mellitus complication status: without complication Qualified Code(s): E11.9 - Type 2 diabetes mellitus without complications
[2018-07-29] MEDS ORDERED: hydroCHLOROthiazide 25 MG Tablet PO SCH (18:00)
--- NOTE | 2018-07-30 02:26 | ECG ---
Date Performed: 07/28/2018 Time Performed: 19:38:37 PTAGE: 73 years EKG: Sinus rhythm NORMAL ECG PREVIOUS TRACING : 07/27/2018 20.01 Since the previous tracing, no significant change noted DOCTOR: Herrera Paul Interpretating Date/Time 07/30/2018 02:24:53
[2018-07-30] MEDS: Levothyroxine 50 MCG Tablet PO SCH (05:36)
[2018-07-30 07:32] VITALS: TEMP 98
[2018-07-30] MEDS: Doxazosin 4 MG Tablet PO SCH (08:11)
[2018-07-30] MEDS: Amiodarone 200 MG Tablet PO SCH (08:12)
[2018-07-30] MEDS: Senna/Docusate Sodium 8.6/50 MG Tablet PO SCH (08:12)
[2018-07-30] MEDS: Metoprolol Tartrate 25 MG Tablet PO SCH (08:12)
[2018-07-30 10:00] VITALS: BP 125/77; O2SAT 94
[2018-07-30 10:15] VITALS: RESP 18
[2018-07-30 10:40] VITALS: PULSE 76
--- NOTE | 2018-07-30 11:43 | P.DS ---
DS: Providers Date of admission: 07/25/18 13:31 Primary care physician: Parish Ponce MD Consults: 07/25/18 13:31 Consult to Cardiology Routine Consulting Provider: Mauricio Acosta Does the patient have a Photogrammetric Technician who follows them?: Yes Preferred Founder And President:: Mauricio Acosta Reason for Consultation: for poss ablation. Patient is Dr Muñiz Patient cardiology needs EP foe eval and ablation Notified:: Office Spoke with:: Enriqueta Date Notified:: 07/25/18 Time Notified:: 13:51 Ordering Provider: MACHO Brief History from admission: Patient is a 73-year-old male with PMH of prostate cancer, currently on radiation therapy, angina, hyperlipidemia, hypertension, type 2 diabetes, asthma, coronary artery disease, paroxysmal A. fib, hypothyroidism presenting to the emergency department for evaluation of increasing fatigue with any exertion. 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 Muñiz and sent to the emergency department to be admitted for a cardiac ablation. Patient reports a history of the same several years ago. Patient denies any chest pain, abdominal pain, nausea, vomiting peripheral edema, shortness of breath, orthopnea. He states he does get lightheaded at times when he walks. DS: Diagnosis Discharge Diagnosis (1) Arrhythmia: Status: Acute (2) CHF (congestive heart failure): Status: Acute (3) Hyponatremia: Status: Acute (4) Atrial fibrillation: Status: Acute (5) Atrial fibrillation with RVR: Status: Acute (6) Essential hypertension: Status: Chronic (7) Type 2 diabetes mellitus: Status: Chronic DS: Summary 73 yo male with past medical history significant for prostate cancer, currently on radiation therapy, angina, hyperlipidemia, hypertension, type 2 diabetes, asthma, coronary artery disease, paroxysmal A. fib, hypothyroidism presented to ED sent by his cardiology Dr Torres for poss ablation with Dr Acosta for Afib. Patient is afiv with avr at times. He is noted with Afib with slow VR with a HR in 30s Afib and Aflutter. Patient is tachycardic after ablation done on 07/27 and was started on amiodarone drip, switched to PO. Patient also noted with elevated BP , and restart metoprolol 25 mg bid. To follow up as OP with cardiology Hyponatremia HTN HLD. DM2, diet controlled Hypothyroidism Prostate CA undergoing chemo HTN trop neg , ekg reviewed. Sent By Dr Muñiz for ablation by Dr Acosta. S/P ablation by Dr Acosta on 07/27 Patient is noted tachycardic status post ablation, questionable atrial flutter. Patient is started on amiodarone drip per cardiology Dr. Acosta recommendations. Cureently off drip and on PO amiodarone. However BP is elevated start metoprolol per Dr Alvarez cardio. Will monitor Continue home meds as appropriate. Continue eliquis per Dr Muñiz DVT ppx eliquis Discussed with the patient, family very supportive of bedside, nurse, Dr. Paul cardiology Discharge plan discharge held to: Persistent tachycardia after ablation. Patient is started on IV amiodarone drip, now on O amiodarone, howeber his BP is elevated , started on metoprolol per cardio. hold DC today. Also consult PT for eval. DC home in stable condition to follow up as OP with PCP and consultants Time Spent with Patient Total time spent providing and/or coordinating discharge services: > 30 min Quality: VTE Deep Vein Thrombosis/Pulmonary Embolism Present on Admission: No Exam Narrative Exam Narrative: Gen: The patient is a very pleasant 73-year-old male sitting up in the chair, appears in not acute distress ENT: Mucous membranes with slightly decreased moisture but not dry Resp: No dyspnea. CTAB. No crackles/wheezes. CV: Regular rhythm. Normal S1/S2. No MRG. Abd: Soft, nontender, nondistended. +[id number] MSK: No cyanosis or edema. Neuro: Awake and alert. Moves all extremities, no focal deficit. Results Impressions ITS Impressions Chest X-Ray 07/25/18 11:35 CONCLUSION: Tortuous aorta otherwise unremarkable single view chest Discharge Plan Discharge Disposition Patient Disposition: Discharge Home Discharge Condition Condition: Stable Discharge Order Discharge Orders: Discharge Order (Routine); Ordered 07/29/18 Ordered By: Maru Larios Discharge Details Anticipated Discharge Date: 07/28/18 Discharge Comment: DC when cleared by cardiology Physicians Team ED Provider: Dyllan Poole ED Midlevel Provider: Kori Bryant Primary Care Provider: Parish Ponce Attending Provider: Maru Larios Other Providers: Mauricio Acosta Rxs /Orders / Referrals /Forms Prescriptions: New amiodarone 200 mg Tablet 400 mg PO BID Qty: 120 RF: 0 metoprolol succinate 25 mg tablet extended release 24 hr 25 mg PO BID Qty: 60 RF: 0 Continue atorvastatin [Lipitor] 20 mg Tablet 20 mg PO QPM RF: 0 levothyroxine [Levoxyl] 50 mcg Tablet 50 mcg PO DAILY RF: 0 hydrochlorothiazide 12.5 mg Capsule 12.5 mg PO DAILY RF: 0 doxazosin [Cardura] 4 mg Tablet 4 mg PO DAILY RF: 0 losartan 100 mg Tablet 100 mg PO DAILY RF: 0 apixaban [Eliquis] 5 mg Tablet 5 mg PO BID RF: 0 Discontinued clonidine HCl 0.1 mg Tablet 0.1 mg PO TID RF: 0 diltiazem HCl [Cartia XT] 240 mg Capsule,Extended Release 24hr 240 mg PO DAILY RF: 0 metoprolol tartrate 50 mg Tablet 50 mg PO BID RF: 0 Referrals: Mauricio Acosta MD [Physician] - See Instructions ( Please call the physician' s office to book the appointment to be seen within [1-2 weeks ].) Parish Ponce MD [Primary Care Provider] - See Instructions ( Please call the physician's office to book the appointment to be seen within [2-3 days].) Discharge Instructions Patient Printed Instructions: Amiodarone (By mouth), Apixaban (By mouth), Atrial Flutter (DC), A-fib (Atrial Fibrillation) (DC), Chest Pain (ED), Cardiac Ablation (DC) Additional Instructions: Your Health Problems: Goals to Promote Your Health: * To prevent worsening of your condition * To maintain your health at the optimal level Directions to Meet Your Goals: * Take your medications as prescribed * Follow your dietary instruction * Follow activity as directed * Keep your appointments as scheduled * Take your immunizations and boosters as scheduled * If your symptoms worsen call your PCP * If no PCP go to Urgent Care or Emergency Room Smoking is dangerous to your health. Avoid second hand smoke. You may reach the 24-hour crisis hotline for domestic abuse at . Post Discharge Care Plan Care Plan Goals: Your Health Problems: Goals to Promote Your Health: * To prevent worsening of your condition * To maintain your health at the optimal level Directions to Meet Your Goals: * Take your medications as prescribed * Follow your dietary instruction * Follow activity as directed * Keep your appointments as scheduled * Take your immunizations and boosters as scheduled * If your symptoms worsen call your PCP * If no PCP go to Urgent Care or Emergency Room Smoking is dangerous to your health. Avoid second hand smoke. You may reach the 24-hour crisis hotline for domestic abuse at . Status ED Status: Left Department Discharge Information Discharge Date/Time: 07/30/18 12:00
--- NOTE | 2018-07-30 13:01 | P.PNCA ---
Subjective Interval history: No events overnight Feels well Continues in sinus rhythm Medications and Allergies Allergies Allergy/AdvReac Type Severity Reaction Status Date / Time Sulfa (Sulfonamide AdvReac Severe subconjuntival Verified 07/29/18 05:56 Antibiotics) bleed Home Medications Medication Instructions Recorded Confirmed Type apixaban [Eliquis] 5 mg PO BID 07/25/18 07/25/18 History atorvastatin [Lipitor] 20 mg PO QPM 07/25/18 07/25/18 History doxazosin [Cardura] 4 mg PO DAILY 07/25/18 07/25/18 History hydrochlorothiazide 12.5 mg PO DAILY 07/25/18 07/25/18 History levothyroxine [Levoxyl] 50 mcg PO DAILY 07/25/18 07/25/18 History losartan 100 mg PO DAILY 07/25/18 07/25/18 History Physical Exam Vital signs: Vital Signs 07/29/18 13:37 07/29/18 14:00 07/29/18 15:00 Temperature Pulse Rate 88 86 88 Respiratory Rate 18 Blood Pressure 145/92 H Pulse Oximetry 98 07/29/18 15:30 07/29/18 16:00 07/29/18 17:00 Temperature 98.1 F Pulse Rate 89 84 86 Respiratory Rate 17 Blood Pressure 164/97 H Pulse Oximetry 97 07/29/18 18:00 07/29/18 19:00 07/29/18 20:00 Temperature 99 F Pulse Rate 84 93 H 92 H Respiratory Rate 18 Blood Pressure 172/100 H Pulse Oximetry 99 07/29/18 21:00 07/29/18 22:00 07/29/18 23:00 Temperature Pulse Rate 84 76 72 Respiratory Rate 18 Blood Pressure 158/100 H Pulse Oximetry 96 07/29/18 23:30 07/30/18 00:00 07/30/18 01:00 Temperature Pulse Rate 72 70 Respiratory Rate Blood Pressure 143/95 H Pulse Oximetry 07/30/18 02:00 07/30/18 03:00 07/30/18 03:52 Temperature Pulse Rate 72 82 76 Respiratory Rate 16 Blood Pressure 153/96 H Pulse Oximetry 96 07/30/18 04:00 07/30/18 05:00 07/30/18 06:00 Temperature Pulse Rate 72 72 78 Respiratory Rate Blood Pressure Pulse Oximetry 07/30/18 07:00 07/30/18 07:31 07/30/18 08:00 Temperature 98 F Pulse Rate 74 80 82 Respiratory Rate 19 Blood Pressure 170/99 H Pulse Oximetry 96 96 07/30/18 09:00 07/30/18 09:59 07/30/18 10:00 Temperature Pulse Rate 78 78 76 Respiratory Rate 17 Blood Pressure 125/77 Pulse Oximetry 94 L 07/30/18 10:15 Temperature Pulse Rate Respiratory Rate 18 Blood Pressure Pulse Oximetry Intake & Output 07/29/18 07/30/18 07/30/18 18:59 06:59 18:59 Intake Total 760 / 760 480 / 480 Output Total 1200 / 1200 Balance 760 / 760 -720 / -720 Weight 81.7 kg Intake: Oral 760 / 760 480 / 480 Output: Urine 1200 / 1200 Other: # Voids 3 Date of Last Bowel Movement 07/28/18 07/27/18 07/30/18 Narrative: GENERAL: Well-developed, well-nourished, NAD. SKIN: Warm and dry. Groin site soft without bruising or bleeding. HEAD: Normocephalic. EYES: No scleral icterus. No injection or drainage. NECK: Supple, trachea midline. No JVD or lymphadenopathy. CARDIOVASCULAR: Regular rhythm, without murmurs, gallops, or rubs. RESPIRATORY: Breath sounds equal bilaterally. No accessory muscle use. GASTROINTESTINAL: Abdomen soft, non-tender, nondistended. MUSCULOSKELETAL: No cyanosis, or edema. BACK: Nontender without obvious deformity. No CVA tenderness. - Urinary Catheter Management Indwelling Urethral Catheter Cath placed during this visit: no Results 07/28/18 05:42 07/28/18 05:42 Coagulation 07/29/18 Range/Units 05:48 PT 11.9 H (9.8-11.6) sec APTT 29.6 (23.4-31.7) sec Intake and Output 07/29/18 07/30/18 07/30/18 22:59 06:59 14:59 Intake Total 760 / 760 480 / 480 Output Total 1200 / 1200 Balance 760 / 760 -720 / -720 Intake: Oral 760 / 760 480 / 480 Output: Urine 1200 / 1200 Other: # Voids 3 Date of Last Bowel Movement 07/27/18 07/27/18 07/30/18 Weight 81.7 kg Assessment and Plan - Assessment (1) Arrhythmia Code(s): I49.9 - Cardiac arrhythmia, unspecified Status: Acute (2) CHF (congestive heart failure) Code(s): I50.9 - Heart failure, unspecified Status: Acute (3) Hyponatremia Code(s): E87.1 - Hypo-osmolality and hyponatremia Status: Acute (4) Atrial fibrillation Code(s): I48.91 - Unspecified atrial fibrillation Status: Acute (5) Atrial fibrillation with RVR Code(s): I48.91 - Unspecified atrial fibrillation Status: Acute (6) Essential hypertension Code(s): I10 - Essential (primary) hypertension Status: Chronic (7) Type 2 diabetes mellitus Code(s): E11.9 - Type 2 diabetes mellitus without complications Status: Chronic - Plan 1) AFib/flutter s/p ablation x2 Started on Amiodarone 400mg BID Continue for 2 weeks Plan for follow up with Dr. Acosta on discharge Yesika 2) Heart rates elevated this morning Started on Metoprolol 25mg BID EKG showing sinus rhythm 3) HTN Multiple changes in medications, never started back on baseline meds, as well as stopping Cardizem Started on Metoprolol Will restart HCTZ Blood pressure better now, possibly potentiated by clonidine withdrawal from home meds 4) Cardiovascularly stable for discharge (7) Type 2 diabetes mellitus Qualifiers: Diabetes mellitus mcc insulin use: without manager social responsibility use Diabetes mellitus complication status: without complication Qualified Code(s): E11.9 - Type 2 diabetes mellitus without complications
--- NOTE | 2018-07-30 23:57 | ECG ---
Date Performed: 07/29/2018 Time Performed: 15:23:50 PTAGE: 73 years EKG: Sinus rhythm . Baseline artifact Leftward axis rSr'(V1) - probable normal variant Borderline ECG PREVIOUS TRACING : 07/28/2018 19.38 Since the previous tracing, no significant change noted DOCTOR: Herrera Paul Interpretating Date/Time 07/30/2018 23:55:53
== END 2018-07-30 12:00 | disposition home or self-care (01) | DRG 274 ==
LOC: NEPE 11:16 → NEDA 13:31 → N04 19:12 → NEDA 19:17 → HCIS 07-27 18:15
PROVIDERS: ADMIT Hospitalist; ATTEND Hospitalist
DX: E11.9 Type 2 diabetes mellitus without complications; E03.9 Hypothyroidism, unspecified; M54.9 Dorsalgia, unspecified; C61 Malignant neoplasm of prostate; I49.5 Sick sinus syndrome; I11.0 Hypertensive heart disease with heart failure; I48.0 Paroxysmal atrial fibrillation; I25.10 Atherosclerotic heart disease of native coronary artery without angina pectoris; I50.9 Heart failure, unspecified; J45.909 Unspecified asthma, uncomplicated; Z79.01 Long term (current) use of anticoagulants; I48.92 Unspecified atrial flutter; G89.29 Other chronic pain; E87.1 Hypo-osmolality and hyponatremia; Z87.891 Personal history of nicotine dependence; E78.5 Hyperlipidemia, unspecified
CPT/HCPCS: 71010; 71045; 80048; 80053; 82550; 82552; 82948; 82962; 83520; 83735; 83880; 84443; 84484; 85002; 85025; 85027; 85610; 85730; 93005; 93312; 93320; 93325; 93613; 93623; 93653; 93656; 93662; 97162; 97530; 99285; C1730; C1731; C1732; C1759; C1760; C1766; C2630; G0269; J0282; J1644; J1940; J1956; J2250; J2720; J3010; J7060